=== PATIENT | female | born 1935 | race Caucasian/White ===

== ENCOUNTER → 2016-12-15 | Outpatient (CLI) | payer MEDICARE, BC ==
[2016-12-15 08:45] LABS: ALT 32 U/L (9-52); AST 24 U/L (14-36); Cholesterol 121 mg/dL (<200); HDL Cholesterol 60 mg/dL (40-60); Triglycerides 74 mg/dL (<150)
== END | disposition home or self-care (01) ==
LOC: LABWHC1 07:34
PROVIDERS: ATTEND Internal Medicine Interventional Cardiology
DX: E78.2 Mixed hyperlipidemia (principal)
CPT/HCPCS: 36415; 80061; 84450; 84460

== ENCOUNTER → 2017-07-19 | Outpatient (CLI) | payer MEDICARE, BC ==
[2017-07-19 10:43] LABS: Calcium 10.1 mg/dL (8.4-10.2); Potassium 5.1 mmol/L (3.5-5.1); Total Bilirubin 0.4 mg/dL (0.2-1.3); Total Protein 7.1 g/dL (6.3-8.2)
== END | disposition home or self-care (01) ==
LOC: LABWHC1 09:25
PROVIDERS: ATTEND Internal Medicine Interventional Cardiology
DX: E78.2 Mixed hyperlipidemia (principal)
CPT/HCPCS: 36415; 80053; 80061

== ENCOUNTER 2017-12-06 11:54 | Emergency (ER) | payer MEDICARE, BC ==
[2017-12-06] MEDS ORDERED: ONDANSETRON 4 MG/2 ML VIAL IVP STA (13:51)
[2017-12-06] MEDS ORDERED: SODIUM CHLORIDE 0.9% 500 ML IV STA (13:51)
[2017-12-06 14:23] VITALS: RESP 18
[2017-12-06 14:28] LABS: Basophils % (A) 0 %; Eosinophils # (A) 0.2 k/uL (0-0.7); Eosinophils % (A) 4 %; HCT 41.5 % (34.0-46.0); HGB 13.7 gm/dL (11.4-16.0); Lymphocytes % (A) 31 %; MCH 32.1 pg (25.0-35.0); MCHC 32.9 g/dL (31.0-37.0); MCV 97.6 fL (80.0-100.0); Mean Platelet Volume 8.7; Monocytes # (A) 0.4 k/uL (0-1.0); Monocytes % (A) 6 %; Neutrophils # (A) 3.7 k/uL (1.3-7.7); Neutrophils % (A) 58 %; Platelet Count 186 k/uL (150-450); RBC 4.25 m/uL (3.80-5.40); RDW 13.1 % (11.5-15.5); WBC 6.4 k/uL (3.8-10.6)
[2017-12-06 14:33] LABS: INR 1.2 (<1.2); Partial Thromboplastin Time 24.5 sec (22.0-30.0); Prothrombin Time 11.3 sec (9.0-12.0)
[2017-12-06 14:37] LABS: ALT 32 U/L (9-52); AST 25 U/L (14-36); Albumin 4.1 g/dL (3.5-5.0); Alkaline Phosphatase 69 U/L (38-126); Anion Gap 10 mmol/L; Blood Urea Nitrogen 25 mg/dL (7-17); Calcium 10.5 mg/dL (8.4-10.2); Carbon Dioxide 23 mmol/L (22-30); Chloride 109 mmol/L (98-107); Glucose 92 mg/dL (74-99); Magnesium 1.9 mg/dL (1.6-2.3); Phosphorus 3.2 mg/dL (2.5-4.5); Potassium 4.5 mmol/L (3.5-5.1); Sodium 142 mmol/L (137-145); Total Bilirubin 0.3 mg/dL (0.2-1.3); Total Protein 6.9 g/dL (6.3-8.2)
[2017-12-06 14:46] LABS: Creatine Kinase 52 U/L (30-135)
--- NOTE | 2017-12-06 14:47 | ED ---
Weakness HPI - General Chief complaint: Weakness Stated complaint: Weakness Time Seen by Provider: 12/06/17 13:37 Source: patient Mode of arrival: wheelchair Limitations: no limitations - History of Present Illness Initial comments: This 82-year-old white female presents stating that she felt sick since this morning. She apparently felt very lightheaded and presyncopal earlier. She also felt a generalized weakness. She states that she has chronic left arm and left leg numbness but then her left leg numbness was worse today with associated right leg numbness. She denies any fevers or chills. She has had some nausea but no vomiting. She denies any abdominal pain, chest pain, or shortness of breath. She denies any headache or neck pain. She apparently had some dysuria last week but none recently. No other urinary symptoms. There are no other complaints or modifying factors. No previous similar incidents. - Related Data Home Medications Medication Instructions Recorded Confirmed Isosorbide Mononitrate ER [Imdur] 60 mg PO DAILY 04/18/15 12/06/17 Lisinopril [Zestril] 5 mg PO QAM 04/18/15 12/06/17 Timolol [Betimol 0.5% Ophth Soln] 1 drop BOTH EYES DAILY 04/18/15 12/06/17 Nitroglycerin Sl Tabs [Nitrostat] 0.4 mg SUBLINGUAL Q5M PRN 06/08/15 12/06/17 Lisinopril [Zestril] 2.5 mg PO HS 09/03/15 12/06/17 Metoprolol Tartrate 25 mg PO BID 09/03/15 12/06/17 Multivitamins, Thera [Theragran] 1 tab PO DAILY 09/03/15 12/06/17 Calcium Carbonate/Vitamin D3 1 tab PO DAILY 05/13/16 12/06/17 [Calcium 600-Vit D3 200 Tablet] Atorvastatin Calcium [Lipitor] 80 mg PO HS 12/06/17 12/06/17 Ferrous Sulfate [Feosol] 325 mg PO DAILY 12/06/17 12/06/17 Previous Rx's Medication Instructions Recorded Pantoprazole Sodium [Protonix] 40 mg PO DAILY #30 tablet. 06/10/15 Clopidogrel [Plavix] 75 mg PO DAILY #1 tablet 06/20/15 Allergies Allergy/AdvReac Type Severity Reaction Status Date / Time acetaminophen Allergy Severe hives, BP Verified 12/06/17 14:46 dropped and pt passed out codeine Allergy Mild Nausea & Verified 12/06/17 14:46 Vomiting Review of Systems ROS Statement: Those systems with pertinent positive or pertinent negative responses have been documented in the HPI. ROS Other: All systems not noted in ROS Statement are negative. Past Medical History Past Medical History: Coronary Artery Disease (CAD), COPD, CVA/TIA, Eye Disorder , GERD/Reflux, GI Bleed, Hyperlipidemia, Hypertension, Myocardial Infarction ([place] ) Additional Past Medical History / Comment(s): hx bleeding ulcer, glaucoma, MACULAR DEGENERATION Last Myocardial Infarction Date:: 2011 History of Any Multi-Drug Resistant Organisms: None Reported Past Surgical History: Cholecystectomy, Coronary Bypass/CABG, Heart Catheterization With Stent Additional Past Surgical History / Comment(s): total 4 stents, CABG May 2012, vein stripping, Past Anesthesia/Blood Transfusion Reactions: No Reported Reaction Additional Past Anesthesia/Blood Transfusion Reaction / Comment(s): no history of blood transfusions Date of Last Stent Placement:: 01/2013 Past Psychological History: No Psychological Hx Reported Smoking Status: Former smoker Past Alcohol Use History: None Reported Past Drug Use History: None Reported - Past Family History Mother Family Medical History: Myocardial Infarction ([place]) Father Family Medical History: Cancer Additional Family Medical History / Comment(s): lung Brother(s) Family Medical History: Cancer, Coronary Artery Disease (CAD), Myocardial Infarction ([place]) Additional Family Medical History / Comment(s): multiple borthers with heart disease and [place]'s. General Exam - General Exam Comments Initial Comments: GENERAL: The patient is well nourished and well hydrated. VITAL SIGNS: Heart rate, blood pressure, respiratory rate reviewed as recorded in nurse's notes. EYES: Pupils are round and reactive. Extraocular movements are intact. No conjunctival / lid redness or swelling. ENT: No external evidence of injury, swelling, or ecchymosis. Airway is patent. Throat is clear. NECK: Nontender. No swelling or evidence of injury. No subcutaneous emphysema. Trachea is midline. No thyroid mass. HEART: Regular rate and rhythm. Good peripheral pulses. LUNGS/CHEST: Breath sounds clear and equal bilaterally. No rales, rhonchi, or wheezes. No ecchymosis, subcutaneous emphysema, or tenderness. ABDOMEN: Abdomen soft without tenderness. No palpable masses or organomegaly. No peritoneal signs. No abdominal wall swelling or ecchymosis. EXTREMITIES: No extremity tenderness. Normal muscle tone and function. No thoracolumbar tenderness. NEUROLOGIC: Sensation is grossly intact. Cranial nerve exam reveals face is symmetrical, tongue is midline, speech is clear. SKIN: No abrasions or ecchymosis is noted. No induration or masses noted. PSYCHIATRIC: Alert and oriented. Appropriate behavior and judgment. Limitations: no limitations Course Vital Signs 12/06/17 12/06/17 12/06/17 12:27 14:22 15:52 Temperature 98.2 F Pulse Rate 60 58 L 62 Respiratory 20 18 18 Rate Blood Pressure 130/60 159/76 159/77 O2 Sat by Pulse 95 94 L 94 L Oximetry Medical Decision Making - Medical Decision Making The patient was seen and examined. All diagnostics were reviewed. An IV is started and she did receive some ample fluid hydration. The EKG shows a normal sinus rhythm with a right bundle-branch block. There is some T-wave inversions in the anteroseptal leads which appears to be chronic as compared to EKG in 2015. There is no acute ST elevation. There is no new EKG changes. The PA intervals 170, QRS duration is 1:30, and the QTC intervals 462. The urinalysis does show a significant urinary tract infection. The laboratory otherwise is unremarkable except for mild hypercalcemia. The computed tomography scan of the brain did not show any acute process with some chronic findings noted. Overall, it is felt as though her symptoms are likely related to the urinary tract infection and that she would benefit from admission. Case will be discussed with internal medicine shortly. - Lab Data Result diagrams: 12/06/17 14:10 12/06/17 14:10 Lab Results 12/06/17 12/06/17 12/06/17 Range/Units 14:10 14:10 14:10 WBC 6.4 (3.8-10.6) k/uL RBC 4.25 (3.80-5.40) m/uL Hgb 13.7 (11.4-16.0) gm/dL Hct 41.5 (34.0-46.0) % MCV 97.6 (80.0-100.0) fL MCH 32.1 (25.0-35.0) pg MCHC 32.9 (31.0-37.0) g/dL RDW 13.1 (11.5-15.5) % Plt Count 186 (150-450) k/uL Neutrophils % 58 % Lymphocytes % 31 % Monocytes % 6 % Eosinophils % 4 % Basophils % 0 % Neutrophils # 3.7 (1.3-7.7) k/uL Lymphocytes # 2.0 (1.0-4.8) k/uL Monocytes # 0.4 (0-1.0) k/uL Eosinophils # 0.2 (0-0.7) k/uL Basophils # 0.0 (0-0.2) k/uL PT (9.0-12.0) sec INR (<1.2) APTT (22.0-30.0) sec Sodium 142 (137-145) mmol/L Potassium 4.5 (3.5-5.1) mmol/L Chloride 109 H (98-107) mmol/L Carbon Dioxide 23 (22-30) mmol/L Anion Gap 10 mmol/L BUN 25 H (7-17) mg/dL Creatinine 0.96 (0.52-1.04) mg/dL Est GFR (MDRD) Af Amer >60 (>60 ml/min/1.73 sqM) Est GFR (MDRD) Non-Af 55 (>60 ml/min/1.73 sqM) Glucose 92 (74-99) mg/dL Calcium 10.5 H (8.4-10.2) mg/dL Phosphorus 3.2 (2.5-4.5) mg/dL Magnesium 1.9 (1.6-2.3) mg/dL Total Bilirubin 0.3 (0.2-1.3) mg/dL AST 25 (14-36) U/L ALT 32 (9-52) U/L Alkaline Phosphatase 69 (38-126) U/L Total Creatine Kinase 52 (30-135) U/L CK-MB (CK-2) 1.1 (0.0-2.4) ng/mL CK-MB (CK-2) Rel Index 2.1 Troponin I <0.012 (0.000-0.034) ng/mL Total Protein 6.9 (6.3-8.2) g/dL Albumin 4.1 (3.5-5.0) g/dL TSH 2.290 (0.465-4.680) mIU/L Urine Color Urine Appearance (Clear) Urine pH (5.0-8.0) Ur Specific [place] (1.001-1.035) Urine Protein (Negative) Urine Glucose (UA) (Negative) Urine Ketones (Negative) Urine Blood (Negative) Urine Nitrite (Negative) Urine Bilirubin (Negative) Urine Urobilinogen (<2.0) mg/dL Ur Leukocyte Esterase (Negative) Urine WBC (0-5) /hpf Ur Squamous Epith Cells (0-4) /hpf Urine Bacteria (None) /hpf Hyaline Casts (0-2) /lpf Urine Mucus (None) /hpf Influenza Type A RNA (Not Detectd) Influenza Type B (PCR) (Not Detectd) 12/06/17 12/06/17 12/06/17 Range/Units 14:10 14:10 15:24 WBC (3.8-10.6) k/uL RBC (3.80-5.40) m/uL Hgb (11.4-16.0) gm/dL Hct (34.0-46.0) % MCV (80.0-100.0) fL MCH (25.0-35.0) pg MCHC (31.0-37.0) g/dL RDW (11.5-15.5) % Plt Count (150-450) k/uL Neutrophils % % Lymphocytes % % Monocytes % % Eosinophils % % Basophils % % Neutrophils # (1.3-7.7) k/uL Lymphocytes # (1.0-4.8) k/uL Monocytes # (0-1.0) k/uL Eosinophils # (0-0.7) k/uL Basophils # (0-0.2) k/uL PT 11.3 (9.0-12.0) sec INR 1.2 H (<1.2) APTT 24.5 (22.0-30.0) sec Sodium (137-145) mmol/L Potassium (3.5-5.1) mmol/L Chloride (98-107) mmol/L Carbon Dioxide (22-30) mmol/L Anion Gap mmol/L BUN (7-17) mg/dL Creatinine (0.52-1.04) mg/dL Est GFR (MDRD) Af Amer (>60 ml/min/1.73 sqM) Est GFR (MDRD) Non-Af (>60 ml/min/1.73 sqM) Glucose (74-99) mg/dL Calcium (8.4-10.2) mg/dL Phosphorus (2.5-4.5) mg/dL Magnesium (1.6-2.3) mg/dL Total Bilirubin (0.2-1.3) mg/dL AST (14-36) U/L ALT (9-52) U/L Alkaline Phosphatase (38-126) U/L Total Creatine Kinase (30-135) U/L CK-MB (CK-2) (0.0-2.4) ng/mL CK-MB (CK-2) Rel Index Troponin I (0.000-0.034) ng/mL Total Protein (6.3-8.2) g/dL Albumin (3.5-5.0) g/dL TSH (0.465-4.680) mIU/L Urine Color Yellow Urine Appearance Cloudy H (Clear) Urine pH 5.0 (5.0-8.0) Ur Specific [place] 1.009 (1.001-1.035) Urine Protein Negative (Negative) Urine Glucose (UA) Negative (Negative) Urine Ketones Negative (Negative) Urine Blood Negative (Negative) Urine Nitrite Positive H (Negative) Urine Bilirubin Negative (Negative) Urine Urobilinogen <2.0 (<2.0) mg/dL Ur Leukocyte Esterase Large H (Negative) Urine WBC 43 H (0-5) /hpf Ur Squamous Epith Cells 3 (0-4) /hpf Urine Bacteria Many H (None) /hpf Hyaline Casts 24 H (0-2) /lpf Urine Mucus Occasional H (None) /hpf Influenza Type A RNA Not Detected (Not Detectd) Influenza Type B (PCR) Not Detected (Not Detectd) Disposition Clinical Impression: Paresthesias, Weakness, Lightheadedness, UTI (urinary tract infection), Hypercalcemia, Hypertension Disposition: ADMITTED IP TO THIS [facility] Condition: Fair Referrals: Yasmani Godfrey MD [Primary Care Provider] - 1-2 days Time of Disposition: 16:07 Decision Date: 12/06/17 Decision Time: 16:07
--- NOTE | 2017-12-06 14:56 | CT ---
EXAMINATION TYPE: CT brain wo con DATE OF EXAM: 12/06/2017 COMPARISON: NONE HISTORY: Weakness and dizziness CT DLP: 1121 mGycm Automated exposure control for dose reduction was used. FINDINGS: There is mild generalized degenerative change. Diffuse areas of abnormal low attenuation within the w sree matter are nonspecific but most typical remote ischemia. An area of acute to subacute ischemia w ould be difficult to exclude and should be correlated with MRI as clinically warranted. Intracranial atherosclerotic changes are noted. No acute intracranial hemorrhage, mass effect or midl ine shift. Calvarium intact. Changes of chronic sinusitis noted with an air-fluid on the right which can be associated with a degr ee of acute sinusitis. IMPRESSION: DEGENERATIVE AND NONSPECIFIC WHITE MATTER CHANGES. MOST LIKELY IN THE BASIS OF REMOTE ISCHEMIA. IF TH ERE IS CONCERN FOR ACUTE ISCHEMIA CORRELATE WITH MRI. CORRELATE FOR ACUTE RIGHT-SIDED MAXILLARY SINUSITIS.
[2017-12-06 14:59] LABS: Creatine Kinase MB 1.1 ng/mL (0.0-2.4); Troponin I <0.012 ng/mL (0.000-0.034)
[2017-12-06 15:44] LABS: Appearance,Urine Cloudy (Clear); Bacteria,Urine Many /hpf; Bilirubin,Urine Negative (Negative); Blood,Urine Negative (Negative); Color,Urine Yellow; Glucose,Urine (UA) Negative (Negative); Hyaline Casts,Urine 24 /lpf (0-2); Ketones,Urine Negative (Negative); Leukocyte Esterase,Urine Large (Negative); Mucus,Urine Occasional /hpf; Nitrite,Urine Positive (Negative); Protein,Urine Negative (Negative); Specific Gravity,Urine 1.009 (1.001-1.035); Squamous Epithelial Cell,Urine 3 /hpf (0-4); Urobilinogen,Urine <2.0 mg/dL (<2.0); WBC,Urine 43 /hpf (0-5)
[2017-12-06] MEDS ORDERED: cefTRIAXone IN SWFI 1,000 MG/10 ML SYRINGE IVP STA (15:57)
--- NOTE | 2017-12-06 16:17 | ED ---
Medical Decision Making - Medical Decision Making The case was eventually discussed with Dr. Anderson and he would like the patient to be discharged home with a prescription for antibiotics. It appears that her vitals are stable, the white blood cell count is normal, and her symptoms have significantly improved at this point. This is discussed with the patient and she is agreeable. He states that he has office hours in the morning and will like her to follow-up with him at that time. The patient and daughter are agreeable to this plan. Return parameters are discussed in detail. She is instructed to drink plenty of water and return if worse. - Lab Data Result diagrams: 12/06/17 14:10 12/06/17 14:10 Lab Results 12/06/17 12/06/17 12/06/17 Range/Units 14:10 14:10 14:10 WBC 6.4 (3.8-10.6) k/uL RBC 4.25 (3.80-5.40) m/uL Hgb 13.7 (11.4-16.0) gm/dL Hct 41.5 (34.0-46.0) % MCV 97.6 (80.0-100.0) fL MCH 32.1 (25.0-35.0) pg MCHC 32.9 (31.0-37.0) g/dL RDW 13.1 (11.5-15.5) % Plt Count 186 (150-450) k/uL Neutrophils % 58 % Lymphocytes % 31 % Monocytes % 6 % Eosinophils % 4 % Basophils % 0 % Neutrophils # 3.7 (1.3-7.7) k/uL Lymphocytes # 2.0 (1.0-4.8) k/uL Monocytes # 0.4 (0-1.0) k/uL Eosinophils # 0.2 (0-0.7) k/uL Basophils # 0.0 (0-0.2) k/uL PT (9.0-12.0) sec INR (<1.2) APTT (22.0-30.0) sec Sodium 142 (137-145) mmol/L Potassium 4.5 (3.5-5.1) mmol/L Chloride 109 H (98-107) mmol/L Carbon Dioxide 23 (22-30) mmol/L Anion Gap 10 mmol/L BUN 25 H (7-17) mg/dL Creatinine 0.96 (0.52-1.04) mg/dL Est GFR (MDRD) Af Amer >60 (>60 ml/min/1.73 sqM) Est GFR (MDRD) Non-Af 55 (>60 ml/min/1.73 sqM) Glucose 92 (74-99) mg/dL Calcium 10.5 H (8.4-10.2) mg/dL Phosphorus 3.2 (2.5-4.5) mg/dL Magnesium 1.9 (1.6-2.3) mg/dL Total Bilirubin 0.3 (0.2-1.3) mg/dL AST 25 (14-36) U/L ALT 32 (9-52) U/L Alkaline Phosphatase 69 (38-126) U/L Total Creatine Kinase 52 (30-135) U/L CK-MB (CK-2) 1.1 (0.0-2.4) ng/mL CK-MB (CK-2) Rel Index 2.1 Troponin I <0.012 (0.000-0.034) ng/mL Total Protein 6.9 (6.3-8.2) g/dL Albumin 4.1 (3.5-5.0) g/dL TSH 2.290 (0.465-4.680) mIU/L Urine Color Urine Appearance (Clear) Urine pH (5.0-8.0) Ur Specific [place] (1.001-1.035) Urine Protein (Negative) Urine Glucose (UA) (Negative) Urine Ketones (Negative) Urine Blood (Negative) Urine Nitrite (Negative) Urine Bilirubin (Negative) Urine Urobilinogen (<2.0) mg/dL Ur Leukocyte Esterase (Negative) Urine WBC (0-5) /hpf Ur Squamous Epith Cells (0-4) /hpf Urine Bacteria (None) /hpf Hyaline Casts (0-2) /lpf Urine Mucus (None) /hpf Influenza Type A RNA (Not Detectd) Influenza Type B (PCR) (Not Detectd) 12/06/17 12/06/17 12/06/17 Range/Units 14:10 14:10 15:24 WBC (3.8-10.6) k/uL RBC (3.80-5.40) m/uL Hgb (11.4-16.0) gm/dL Hct (34.0-46.0) % MCV (80.0-100.0) fL MCH (25.0-35.0) pg MCHC (31.0-37.0) g/dL RDW (11.5-15.5) % Plt Count (150-450) k/uL Neutrophils % % Lymphocytes % % Monocytes % % Eosinophils % % Basophils % % Neutrophils # (1.3-7.7) k/uL Lymphocytes # (1.0-4.8) k/uL Monocytes # (0-1.0) k/uL Eosinophils # (0-0.7) k/uL Basophils # (0-0.2) k/uL PT 11.3 (9.0-12.0) sec INR 1.2 H (<1.2) APTT 24.5 (22.0-30.0) sec Sodium (137-145) mmol/L Potassium (3.5-5.1) mmol/L Chloride (98-107) mmol/L Carbon Dioxide (22-30) mmol/L Anion Gap mmol/L BUN (7-17) mg/dL Creatinine (0.52-1.04) mg/dL Est GFR (MDRD) Af Amer (>60 ml/min/1.73 sqM) Est GFR (MDRD) Non-Af (>60 ml/min/1.73 sqM) Glucose (74-99) mg/dL Calcium (8.4-10.2) mg/dL Phosphorus (2.5-4.5) mg/dL Magnesium (1.6-2.3) mg/dL Total Bilirubin (0.2-1.3) mg/dL AST (14-36) U/L ALT (9-52) U/L Alkaline Phosphatase (38-126) U/L Total Creatine Kinase (30-135) U/L CK-MB (CK-2) (0.0-2.4) ng/mL CK-MB (CK-2) Rel Index Troponin I (0.000-0.034) ng/mL Total Protein (6.3-8.2) g/dL Albumin (3.5-5.0) g/dL TSH (0.465-4.680) mIU/L Urine Color Yellow Urine Appearance Cloudy H (Clear) Urine pH 5.0 (5.0-8.0) Ur Specific [place] 1.009 (1.001-1.035) Urine Protein Negative (Negative) Urine Glucose (UA) Negative (Negative) Urine Ketones Negative (Negative) Urine Blood Negative (Negative) Urine Nitrite Positive H (Negative) Urine Bilirubin Negative (Negative) Urine Urobilinogen <2.0 (<2.0) mg/dL Ur Leukocyte Esterase Large H (Negative) Urine WBC 43 H (0-5) /hpf Ur Squamous Epith Cells 3 (0-4) /hpf Urine Bacteria Many H (None) /hpf Hyaline Casts 24 H (0-2) /lpf Urine Mucus Occasional H (None) /hpf Influenza Type A RNA Not Detected (Not Detectd) Influenza Type B (PCR) Not Detected (Not Detectd) Disposition Clinical Impression: Paresthesias, Weakness, Lightheadedness, UTI (urinary tract infection), Hypercalcemia, Hypertension Disposition: HOME SELF-CARE Condition: Good Instructions: Urinary Tract Infection in Women (ED), Hypertension (ED) Prescriptions: Ciprofloxacin HCl [Cipro] 500 mg PO Q12HR #20 tablet Referrals: Yasmani Godfrey MD [Primary Care Provider] - 12/07/17 Time of Disposition: 16:17
[2017-12-06 16:40] VITALS: PULSE 66
[2017-12-06 16:41] LABS: Glucose,Whole Blood 85 mg/dL (75-99)
[2017-12-06 16:56] VITALS: BP 162/81; TEMP 97.8
== END 2017-12-06 16:56 | disposition home or self-care (01) ==
LOC: EC 11:54
DX: E83.52 Hypercalcemia (principal); I10 Essential (primary) hypertension; N39.0 Urinary tract infection, site not specified; R42 Dizziness and giddiness; R53.1 Weakness; R20.2 Paresthesia of skin; I25.10 Atherosclerotic heart disease of native coronary artery without angina pectoris; E78.5 Hyperlipidemia, unspecified; I25.2 Old myocardial infarction; Z86.73 Personal history of transient ischemic attack (TIA), and cerebral infarction without residual deficits; Z86.69 Personal history of other diseases of the nervous system and sense organs; Z95.1 Presence of aortocoronary bypass graft; Z95.5 Presence of coronary angioplasty implant and graft; Z87.891 Personal history of nicotine dependence; Z79.899 Other long term (current) drug therapy; Z88.6 Allergy status to analgesic agent; Z88.5 Allergy status to narcotic agent
CPT/HCPCS: 36415; 93005; 80053; 82550; 82553; 83735; 84100; 84443; 84484; 85025; 85610; 85730; 81001; 87040; 87502; 70450; 99285; 96374; 96375; 96361 ×3; J2405; J0696

== ENCOUNTER → 2018-01-11 | Outpatient (CLI) | payer MEDICARE, BC ==
[2018-01-11 09:07] LABS: ALT 25 U/L (9-52); AST 25 U/L (14-36); Albumin 4.3 g/dL (3.5-5.0); Alkaline Phosphatase 63 U/L (38-126); Anion Gap 10 mmol/L; Blood Urea Nitrogen 18 mg/dL (7-17); Calcium 10.1 mg/dL (8.4-10.2); Carbon Dioxide 29 mmol/L (22-30); Chloride 106 mmol/L (98-107); Cholesterol 126 mg/dL (<200); Glucose 91 mg/dL (74-99); HDL Cholesterol 67 mg/dL (40-60); LDL Cholesterol,Calculated 43 mg/dL (0-99); Potassium 4.3 mmol/L (3.5-5.1); Sodium 145 mmol/L (137-145); Total Bilirubin 0.6 mg/dL (0.2-1.3); Total Protein 7.2 g/dL (6.3-8.2); Triglycerides 80 mg/dL (<150)
== END | disposition home or self-care (01) ==
LOC: LABWHC1 08:11
PROVIDERS: ATTEND Internal Medicine Interventional Cardiology
DX: E78.2 Mixed hyperlipidemia (principal)
CPT/HCPCS: 36415; 80053; 80061

== ENCOUNTER → 2018-04-21 | Outpatient (CLI) | payer MEDICARE, BC ==
--- NOTE | 2018-04-21 14:15 | XR ---
EXAMINATION TYPE: XR lumbosacral spine min 4V DATE OF EXAM: 04/21/2018 COMPARISON: NONE HISTORY: Low back pain TECHNIQUE: Five-view lumbar spine FINDINGS: Scoliosis is present. There 5 lumbar-type vertebral bodies. The pedicles as visualized appe ar intact. Degenerative disc changes with loss of disc height are present throughout the lumbar spine . Spondylosis is present. Note is made of fusiform prominence of the calcified abdominal aorta. This has a maximum AP diameter approximately 2.2 cm as visualized. IMPRESSION: 1. Multilevel degenerative disc changes within the scoliotic lumbar spine. 2. Minimal fusiform prominence distal calcified abdominal aorta estimated 2.2 cm.
== END | disposition home or self-care (01) ==
LOC: RADXRMAIN 13:04
PROVIDERS: ATTEND Internal Medicine
DX: M47.816 Spondylosis without myelopathy or radiculopathy, lumbar region (principal); M41.9 Scoliosis, unspecified
CPT/HCPCS: 72110

== ENCOUNTER → 2018-06-13 | Outpatient (CLI) | payer MEDICARE, BC ==
--- NOTE | 2018-06-13 15:48 | XR ---
EXAMINATION TYPE: XR chest 2V DATE OF EXAM: 06/13/2018 COMPARISON: 04/01/2013 INDICATION: Low back pain, pre-MRI clearance TECHNIQUE: Frontal and lateral views of the chest are obtained. FINDINGS: The heart size is normal. The pulmonary vasculature is normal. The lungs are clear. No suspicious metallic foreign body to contraindicate MRI is evident. Sternotom y wires and surgical clips from CABG are evident. There is a cardiac stent faintly visualized which s hould be checked for MRI compatibility. IMPRESSION: 1. Cardiac stent should be checked for MRI compatibility. 2. No suspicious metallic foreign bodies otherwise evident to contraindicate MRI
== END | disposition home or self-care (01) ==
LOC: RADXRMAIN 11:25
PROVIDERS: ATTEND Physician Assistant
DX: Z01.818 Encounter for other preprocedural examination (principal); Z95.5 Presence of coronary angioplasty implant and graft; Z95.1 Presence of aortocoronary bypass graft
CPT/HCPCS: 71046

== ENCOUNTER → 2018-07-14 | Outpatient (CLI) | payer MEDICARE, BC ==
[2018-07-14 10:12] LABS: ALT 18 U/L (9-52); AST 31 U/L (14-36); Cholesterol 107 mg/dL (<200); HDL Cholesterol 55 mg/dL (40-60); LDL Cholesterol,Calculated 39 mg/dL (0-99); Triglycerides 66 mg/dL (<150)
== END | disposition home or self-care (01) ==
LOC: LABWHC1 09:21
PROVIDERS: ATTEND Internal Medicine Interventional Cardiology
DX: E78.2 Mixed hyperlipidemia (principal)
CPT/HCPCS: 36415; 80061; 84450; 84460

== ENCOUNTER → 2019-08-22 | Outpatient (CLI) | payer MEDICARE, BC ==
[2019-08-22 16:39] LABS: Chol/HDL Ratio 2.07; LDL Cholesterol,Calculated 45.6 mg/dL (0.0-131.0); VLDL Calculation 14.4 mg/dL (5.00-40.00)
== END | disposition home or self-care (01) ==
LOC: LABWHC1 08:10
PROVIDERS: ATTEND Internal Medicine Interventional Cardiology
DX: E78.2 Mixed hyperlipidemia (principal)
CPT/HCPCS: 36415; 80061; 84450; 84460

== ENCOUNTER → 2021-03-10 | Outpatient (CLI) | payer MEDICARE ==
[2021-03-10 19:07] LABS: Chol/HDL Ratio 2.64
== END | disposition home or self-care (01) ==
LOC: LABWHC1 07:30
PROVIDERS: ATTEND Nurse Practitioner Adult Health
DX: E78.2 Mixed hyperlipidemia (principal)
CPT/HCPCS: 36415; 80061

== ENCOUNTER 2021-09-22 07:11 | Observation (INO) | payer MEDICARE ==
--- NOTE | 2021-09-22 07:54 | ED ---
General Adult HPI - General Chief complaint: Chest Pain Stated complaint: Chest pain Time Seen by Provider: 09/22/21 07:13 Source: patient, EMS Mode of arrival: EMS Limitations: no limitations - History of Present Illness Initial comments: Dictation was produced using [employer] dictation software. please excuse any grammatical, word or spelling errors. Chief Complaint: Patient is an 86-year-old female presents to the emergency department for chest discomfort History of Present Illness: Patient is an 78-year-old female she has past m edical history coronary artery disease, bypass surgery. She states that this morning she woke up with episode of nausea. She states the nausea was short- lived lasting for several minutes and resolving on its own spontaneously. Several minutes later patient started to feel pressure in her chest. She denies that it feels like pain. Nonradiating. She told her neighbor who provided her with nitroglycerin. She called EMS was brought to the emergency department. Patient denies any symptoms at this time. She states she is asymptomatic at this time. Denies any shortness of breath. She is also concerned that she has a and peptic ulcer because last time she had a peptic ulcer she had nausea. Denies any black stools. No abdominal pain. The ROS documented in this emergency department record has been reviewed and confirmed by me. Those systems with pertinent positive or negative responses have been documented in the HPI. All other systems are other negative and/or noncontributory. PHYSICAL EXAM: General Impression: Alert and oriented x3, not in acute distress HEENT: Normocephalic atraumatic, extra-ocular movements intact, pupils equal and reactive to light bilaterally, mucous membranes moist. Cardiovascular: Heart regular rate and rhythm Chest: Able to complete full sentences, no retractions, no tachypnea Abdomen: abdomen soft, non-tender, non-distended, no organomegaly Musculoskeletal: Pulses present and equal in all extremities, no peripheral edema Motor: no focal deficits noted Neurological: CN II-XII grossly intact, no focal motor or sensory deficits noted Skin: Intact with no visualized rashes Psych: Normal affect and mood ED course: 86-year-old female past medical history of coronary artery disease, status post bypass surgery presents to the emergency department for chest pressure. Vital signs upon arrival are within acceptable limits. EKG shows no signs of ischemia or infarction. Labs are unremarkable. Cardiac enzymes normal. Patient had a really received aspirin from prehospital providers. Given patient's risk factors and history of coronary artery disease patient be admitted observation for cardiac monitoring and serial troponins. Cardiology was consulted. EKG interpretation: Ventricular rate 63, sinus rhythm, NC interval 1:30, QRS 70, QTc 450. No NC prolongation, no QTC prolongation, no ST or T-wave changes noted. Overall, this EKG is unremarkable - Related Data Home Medications Medication Instructions Recorded Confirmed Nitroglycerin Sl Tabs [Nitrostat] 0.4 mg SL Q5M PRN 06/08/15 09/22/21 Metoprolol Tartrate 25 mg PO BID 09/03/15 09/22/21 Multivitamins, Thera [Theragran] 1 tab PO DAILY 09/03/15 09/22/21 Atorvastatin Calcium [Lipitor] 40 mg PO HS 12/06/17 09/22/21 Aspirin 243 mg PO ONCE PRN 09/22/21 09/22/21 Aspirin EC [Ecotrin Low Dose] 81 mg PO DAILY 09/22/21 09/22/21 Baclofen [Lioresal] 10 mg PO DAILY 09/22/21 09/22/21 Calcium Carbonate [Calcium] 600 mg PO BID 09/22/21 09/22/21 Celecoxib [CeleBREX] 200 mg PO DAILY 09/22/21 09/22/21 Isosorbide Mononitrate ER [Imdur] 60 mg PO DAILY 09/22/21 09/22/21 Lisinopril [Zestril] 10 mg PO BID 09/22/21 09/22/21 Oxybutynin Xl [Ditropan XL] 5 mg PO DAILY 09/22/21 09/22/21 amLODIPine [Norvasc] 2.5 mg PO DAILY 09/22/21 09/22/21 Previous Rx's Medication Instructions Recorded Pantoprazole Sodium [Protonix] 40 mg PO DAILY #30 tablet. 06/10/15 Allergies Allergy/AdvReac Type Severity Reaction Status Date / Time acetaminophen Allergy Severe hives, BP Verified 09/22/21 08:24 dropped and pt passed out codeine Allergy Mild Nausea & Verified 09/22/21 08:24 Vomiting Review of Systems ROS Statement: Those systems with pertinent positive or pertinent negative responses have been documented in the HPI. ROS Other: All systems not noted in ROS Statement are negative. Past Medical History Past Medical History: Coronary Artery Disease (CAD), COPD, CVA/TIA, Eye Disorder, GERD/Reflux, GI Bleed, Hyperlipidemia, Hypertension, Myocardial Infarction (OR) Additional Past Medical History / Comment(s): hx bleeding ulcer, glaucoma, MACULAR DEGENERATION Last Myocardial Infarction Date:: 2011 History of Any Multi-Drug Resistant Organisms: None Reported Past Surgical History: Cholecystectomy, Coronary Bypass/CABG, Heart Catheterization With Stent Additional Past Surgical History / Comment(s): total 4 stents, CABG May 2012, vein stripping, Past Anesthesia/Blood Transfusion Reactions: No Reported Reaction Additional Past Anesthesia/Blood Transfusion Reaction / Comment(s): no history of blood transfusions Date of Last Stent Placement:: 01/2013 Past Psychological History: No Psychological Hx Reported Smoking Status: Never smoker Past Alcohol Use History: Occasional Past Drug Use History: None Reported - Past Family History Mother Family Medical History: Myocardial Infarction (OR) Father Family Medical History: Cancer Additional Family Medical History / Comment(s): lung Brother(s) Family Medical History: Cancer, Coronary Artery Disease (CAD), Myocardial I nfarction (OR) Additional Family Medical History / Comment(s): multiple borthers with heart disease and OR's. General Exam Limitations: no limitations Course Vital Signs 09/22/21 09/22/21 09/22/21 07:29 07:50 08:10 Temperature 98.3 F Pulse Rate 57 L 57 L 80 Respiratory 18 18 17 Rate Blood Pressure 160/65 165/74 177/83 O2 Sat by Pulse 95 94 L 98 Oximetry 09/22/21 09:05 Temperature Pulse Rate 52 L Respiratory 18 Rate Blood Pressure 165/76 O2 Sat by Pulse 98 Oximetry Medical Decision Making - Lab Data Result diagrams: 09/22/21 07:40 09/22/21 07:40 Lab Results 09/22/21 09/22/21 09/22/21 Range/Units 07:40 07:40 07:40 WBC 10.5 (3.8-10.6) k/uL RBC 3.94 (3.80-5.40) m/uL Hgb 12.9 (11.4-16.0) gm/dL Hct 39.0 (34.0-46.0) % MCV 99.1 (80.0-100.0) fL MCH 32.7 (25.0-35.0) pg MCHC 33.0 (31.0-37.0) g/dL RDW 12.1 (11.5-15.5) % Plt Count 145 L (150-450) k/uL MPV 9.4 Neutrophils % 73 % Lymphocytes % 16 % Monocytes % 6 % Eosinophils % 4 % Basophils % 0 % Neutrophils # 7.7 (1.3-7.7) k/uL Lymphocytes # 1.7 (1.0-4.8) k/uL Monocytes # 0.6 (0-1.0) k/uL Eosinophils # 0.4 (0-0.7) k/uL Basophils # 0.0 (0-0.2) k/uL PT 10.8 (9.0-12.0) sec INR 1.0 (<1.2) APTT 22.7 (22.0-30.0) sec Sodium 140 (137-145) mmol/L Potassium 4.7 (3.5-5.1) mmol/L Chloride 110 H (98-107) mmol/L Carbon Dioxide 23 (22-30) mmol/L Anion Gap 7 mmol/L BUN 27 H (7-17) mg/dL Creatinine 1.18 H (0.52-1.04) mg/dL Est GFR (CKD-EPI)AfAm 48 (>60 ml/min/1.73 sqM) Est GFR (CKD-EPI)NonAf 41 (>60 ml/min/1.73 sqM) Glucose 99 (74-99) mg/dL Calcium 9.6 (8.4-10.2) mg/dL Magnesium 1.7 (1.6-2.3) mg/dL Total Bilirubin 0.6 (0.2-1.3) mg/dL AST 27 (14-36) U/L ALT 12 (4-34) U/L Alkaline Phosphatase 62 (38-126) U/L Troponin I (0.000-0.034) ng/mL Total Protein 6.7 (6.3-8.2) g/dL Albumin 3.8 (3.5-5.0) g/dL Lipase 131 (23-300) U/L 09/22/21 Range/Units 07:40 WBC (3.8-10.6) k/uL RBC (3.80-5.40) m/uL Hgb (11.4-16.0) gm/dL Hct (34.0-46.0) % MCV (80.0-100.0) fL MCH (25.0-35.0) pg MCHC (31.0-37.0) g/dL RDW (11.5-15.5) % Plt Count (150-450) k/uL MPV Neutrophils % % Lymphocytes % % Monocytes % % Eosinophils % % Basophils % % Neutrophils # (1.3-7.7) k/uL Lymphocytes # (1.0-4.8) k/uL Monocytes # (0-1.0) k/uL Eosinophils # (0-0.7) k/uL Basophils # (0-0.2) k/uL PT (9.0-12.0) sec INR (<1.2) APTT (22.0-30.0) sec Sodium (137-145) mmol/L Potassium (3.5-5.1) mmol/L Chloride (98-107) mmol/L Carbon Dioxide (22-30) mmol/L Anion Gap mmol/L BUN (7-17) mg/dL Creatinine (0.52-1.04) mg/dL Est GFR (CKD-EPI)AfAm (>60 ml/min/1.73 sqM) Est GFR (CKD-EPI)NonAf (>60 ml/min/1.73 sqM) Glucose (74-99) mg/dL Calcium (8.4-10.2) mg/dL Magnesium (1.6-2.3) mg/dL Total Bilirubin (0.2-1.3) mg/dL AST (14-36) U/L ALT (4-34) U/L Alkaline Phosphatase (38-126) U/L Troponin I <0.012 (0.000-0.034) ng/mL Total Protein (6.3-8.2) g/dL Albumin (3.5-5.0) g/dL Lipase (23-300) U/L Disposition Clinical Impression: Chest pain Disposition: [facility] Condition: Fair Referrals: Kev Waddell MD [Primary Care Provider] - 1-2 days
[2021-09-22 08:03] LABS: Basophils % (A) 0 %; Eosinophils # (A) 0.4 k/uL (0-0.7); Eosinophils % (A) 4 %; HGB 12.9 gm/dL (11.4-16.0); Lymphocytes # (A) 1.7 k/uL (1.0-4.8); Lymphocytes % (A) 16 %; MCH 32.7 pg (25.0-35.0); MCV 99.1 fL (80.0-100.0); Mean Platelet Volume 9.4; Monocytes # (A) 0.6 k/uL (0-1.0); Monocytes % (A) 6 %; Neutrophils # (A) 7.7 k/uL (1.3-7.7); Neutrophils % (A) 73 %; Platelet Count 145 k/uL (150-450); RBC 3.94 m/uL (3.80-5.40); RDW 12.1 % (11.5-15.5); WBC 10.5 k/uL (3.8-10.6)
--- NOTE | 2021-09-22 08:14 | XR ---
EXAMINATION TYPE: XR chest 2V DATE OF EXAM: 09/22/2021 COMPARISON: 06/13/2018 HISTORY: 86-year-old female with chest pain TECHNIQUE: PA and lateral views FINDINGS: Heart borderline in size when referring to the lateral view. Atherosclerotic arch calcifications. Pul monary vasculature within normal limits. Hyperinflation. Median sternotomy wires are present in the p ost-CABG clips in the mediastinum. Rounded retrocardiac lucency is redemonstrated. A band of atelecta sis at the right base. Otherwise, no consolidation or pleural effusion. IMPRESSION: 1. COPD with strandy right basilar atelectasis. 2. Suspect a moderate-sized hiatal hernia.
[2021-09-22 08:16] LABS: Partial Thromboplastin Time 22.7 sec (22.0-30.0); Prothrombin Time 10.8 sec (9.0-12.0)
[2021-09-22 08:23] LABS: Albumin 3.8 g/dL (3.5-5.0); Calcium 9.6 mg/dL (8.4-10.2); Magnesium 1.7 mg/dL (1.6-2.3); Potassium 4.7 mmol/L (3.5-5.1); Total Bilirubin 0.6 mg/dL (0.2-1.3); Total Protein 6.7 g/dL (6.3-8.2)
[2021-09-22] MEDS ORDERED: NITROGLYCERIN SL TABS 0.4 MG TAB SUBLINGUAL PRN (09:08)
[2021-09-22] MEDS: METOPROLOL TARTRATE 25 MG TAB PO SCH ×2 (11:09→23:36)
[2021-09-22] MEDS: amLODIPine 2.5 MG TAB PO SCH (11:10)
[2021-09-22] MEDS: lisinopriL 10 MG TAB PO SCH ×2 (11:10→23:36)
[2021-09-22] MEDS: ISOSORBIDE MONONITRATE ER 60 MG TAB.ER.24H PO SCH (11:10)
--- NOTE | 2021-09-22 12:22 | ECHOF ---
Referral Reason:LV function MEASUREMENTS -------- HEIGHT: 157.5 cm WEIGHT: 52.6 kg BP: RVIDd: 2.8 cm (< 3.3) IVSd: 1.0 cm (0.6 - 1.1) LVIDd: 4.4 cm (3.9 - 5.3) LVPWd: 1.1 cm (0.6 - 1.1) IVSs: 1.4 cm LVIDs: 3.1 cm LVPWs: 1.4 cm LA Diam: 4.2 cm (2.7 - 3.8) LAESV Index (A-L): 31.31 ml/m Ao Diam: 2.8 cm (2.0 - 3.7) AV Cusp: 1.6 cm (1.5 - 2.6) MV EXCURSION: 18.395 mm (> 18.000) MV EF SLOPE: 98 mm/s (70 - 150) EPSS: 0.6 cm MV E Kodi: 0.71 m/s MV DecT: 208 ms MV A Kodi: 0.59 m/s MV E/A Ratio: 1.21 RAP: 5.00 mmHg RVSP: 44.20 mmHg FINDINGS -------- Sinus rhythm. This was a technically adequate study. The left ventricular size is normal. Left ventricular wall thickness is normal. Overall left vent ricular systolic function is low-normal with, an EF between 50 - 55 %. The right ventricle is normal in size. LA is midly dilated 29-33ml/m2. The right atrial size is normal. There is mild aortic valve sclerosis. Mild mitral annular calcification present. Mild mitral regurgitation is present. Pclc-lc-rgyxxflc tricuspid regurgitation present. There is mild to moderate pulmonary hypertension. The right ventricular systolic pressure, as measured by Doppler, is 44.20mmHg. Trace/mild (physiologic) pulmonic regurgitation. The aortic root size is normal. There is no pericardial effusion. CONCLUSIONS -------- 1. Overall left ventricular systolic function is low-normal with, an EF between 50 - 55 %. 2. LA is midly dilated 29-33ml/m2. 3. There is mild aortic valve sclerosis. 4. Mild mitral regurgitation is present. 5. Naeg-ig-uilwscpp tricuspid regurgitation present. 6. There is mild to moderate pulmonary hypertension. 7. Trace/mild (physiologic) pulmonic regurgitation. 8. There is no pericardial effusion. [employer]TER: Ledy Banuelos RDCS
--- NOTE | 2021-09-22 13:00 | P.CRDCN ---
History of Present Illness History of present illness: HISTORY OF PRESENTING ILLNESS This is a pleasant 86-year-old female past medical history significant for coronary artery disease status post 5 vessel CABG 2011, PCI of the mid RCA in 2011, PCI of the proximal D1 in 2012, hypertension, dyslipidemia, former tobacco use, Gastric ulcer, gastritis. She follows in the office with Dr. Cueto. We have been asked to see in consultation for chest pain. Patient is seen and examined in the emergency department. Patient presents emergency department with complaints of nausea and chest pressure. She states she woke up with morning with worsening nausea, she states she has a known gastric ulcer and usually gets nauseous occasionally and it resolves. This morning her nausea persisted, she sat down and proceeded to experience a heavy chest pressure. She checked her blood pressure and it was elevated at 188/86. Chest pressure was located in the center of her chest. Non-radiating, non-exertional. She was slightly lightheaded. No specific aggravating factors. She took a sublingual nitroglycerin. EMS was called was given 325mg of aspirin and another nitroglyerin she states her pain resolved before arriving to the emergency department. She denies abdominal pain, vomiting, shortness of breath, palpitations, dizziness, syncope, symptoms of orthopnea or PND. She denies smoking. She states these symptoms are different then when she had her stents placed prior. DIAGNOSTICS EKG reveals sinus rhythm, RBBB, HR 58, T wave inversions in leads V2 and V3. Prior EKG with similar findings Echocardiogram the office in 03/2020 revealed EF of 50%, mild mitral regurgitation, mild to moderate tricuspid regurgitation Lexiscan in 2016 in the office, negative for reversible ischemia Chest xray hyperinflation, COPD with strandy right basilar atelectasis, suspect a moderate sized hiatal hernia. Laboratory reviewed, Plt 14, rest of CBC unremarkable, sodium 140, potassium 4.7, BUN 27, serum creatinine 1.18, and is 1.7, troponin negative 2, LFTs with in normal limits and Lipase within normal limits, covid-19 PCR negative. Current cardiac medications include amlodipine 2.5 mg daily, metoprolol tartrate 25 mg twice a day, lisinopril 10 mg twice a day, Imdur 60 mg daily, atorvastatin 40 mg daily, aspirin 81 mg daily REVIEW OF SYSTEMS At the time of my exam: CONSTITUTIONAL: Denies fever or chills. CARDIOVASCULAR: + chest pain,Denies shortness of breath, orthopnea, PND or palpitations. RESPIRATORY: Denies cough. GASTROINTESTINAL: +nausea Denies abdominal pain, diarrhea, constipation, vomiting. MUSCULOSKELETAL: Denies myalgias. NEUROLOGIC: Denies numbness, tingling, headacbe or weakness. ENDOCRINE: Denies fatigue, weight change, polydipsia or polyurina. GENITOURINARY: Denies burning, hematuria or urgency with micturation. HEMATOLOGIC: Denies history of anemia or bleeding. PHYSICAL EXAMINATION Blood pressure 124/60, heart 52, afebrile maintaining oxygen saturations 97% on 2 L nasal cannula CONSTITUTIONAL: No apparent distress. HEENT: Head is normocephalic. Pupils are equal, round. Sclerae anicteric. Mucous membranes of the mouth are moist. No JVD. No carotid bruit. CHEST EXAMINATION: Lungs are clear to auscultation. No chest wall tenderness is noted on palpation or with deep breathing. HEART EXAMINATION: Regular rate and rhythm. S1, S2 heard. Systolic ejection murmur, No gallops or rub. ABDOMEN: Soft, nontender. Positive bowel sounds. EXTREMITIES: 2+ peripheral pulses, no lower extremity edema and no calf tenderness. NEUROLOGIC EXAMINATION: Patient is awake, alert and oriented x3. ASSESSMENT Chest pain, atypical Nausea Acute Kidney Injury Coronary artery disease status post 5 vessel CABG 2011, PCI of the mid RCA in 2011, PCI of the proximal D1 in 2013 Hypertension Dyslipidemia Former tobacco use History of gastric ulcer PLAN Trend troponin Repeat EKG Continue cardiac telemetry Echocardiogram completed revealed EF 50-55%, mild mitral regurgitation, mild to moderate tricuspid regurgitation, mild to moderate pulmonary hypertension. Continue home amlodipine, aspirin, statin, Imdur, Lisinopril, metoprolol tartrate. Continue to follow patient and monitor chest pain Further recommendations based on clinical course Nurse Practitioner note has been reviewed, I agree with a documented findings and plan of care. Patient was seen and examined. Past Medical History Past Medical History: Coronary Artery Disease (CAD), COPD, CVA/TIA, Eye Disorder, GERD/Reflux, GI Bleed, Hyperlipidemia, Hypertension, Myocardial Infarction (SD) Additional Past Medical History / Comment(s): hx bleeding ulcer, glaucoma, MACULAR DEGENERATION Last Myocardial Infarction Date:: 2011 History of Any Multi-Drug Resistant Organisms: None Reported Past Surgical History: Cholecystectomy, Coronary Bypass/CABG, Heart Catheterization With Stent Additional Past Surgical History / Comment(s): total 4 stents, CABG May 2012, vein stripping, Past Anesthesia/Blood Transfusion Reactions: No Reported Reaction Additional Past Anesthesia/Blood Transfusion Reaction / Comment(s): no history of blood transfusions Date of Last Stent Placement:: 01/2013 Past Psychological History: No Psychological Hx Reported Smoking Status: Never smoker Past Alcohol Use History: Occasional Past Drug Use History: None Reported - Past Family History Mother Family Medical History: Myocardial Infarction (SD) Father Family Medical History: Cancer Additional Family Medical History / Comment(s): lung Brother(s) Family Medical History: Cancer, Coronary Artery Disease (CAD), Myocardial Infarction (SD) Additional Family Medical History / Comment(s): multiple borthers with heart disease and SD's. Medications and Allergies Home Medications Medication Instructions Recorded Confirmed Type Nitroglycerin Sl Tabs [Nitrostat] 0.4 mg SL Q5M PRN 06/08/15 09/22/21 History Pantoprazole Sodium [Protonix] 40 mg PO DAILY #30 tablet. 06/10/15 09/22/21 Rx Metoprolol Tartrate 25 mg PO BID 09/03/15 09/22/21 History Multivitamins, Thera [Theragran] 1 tab PO DAILY 09/03/15 09/22/21 History Atorvastatin Calcium [Lipitor] 40 mg PO HS 12/06/17 09/22/21 History Aspirin 243 mg PO ONCE PRN 09/22/21 09/22/21 History Aspirin EC [Ecotrin Low Dose] 81 mg PO DAILY 09/22/21 09/22/21 History Baclofen [Lioresal] 10 mg PO DAILY 09/22/21 09/22/21 History Calcium Carbonate [Calcium] 600 mg PO BID 09/22/21 09/22/21 History Celecoxib [CeleBREX] 200 mg PO DAILY 09/22/21 09/22/21 History Isosorbide Mononitrate ER [Imdur] 60 mg PO DAILY 09/22/21 09/22/21 History Lisinopril [Zestril] 10 mg PO BID 09/22/21 09/22/21 History Oxybutynin Xl [Ditropan XL] 5 mg PO DAILY 09/22/21 09/22/21 History amLODIPine [Norvasc] 2.5 mg PO DAILY 09/22/21 09/22/21 History Allergies Allergy/AdvReac Type Severity Reaction Status Date / Time acetaminophen Allergy Severe hives, BP Verified 09/22/21 08:24 dropped and pt passed out codeine Allergy Mild Nausea & Verified 09/22/21 08:24 Vomiting Physical Exam Vitals: Vital Signs Temp Pulse Resp BP Pulse Ox 09/22/21 09:05 52 L 18 165/76 98 09/22/21 08:10 80 17 177/83 98 09/22/21 07:50 57 L 18 165/74 94 L 09/22/21 07:29 98.3 F 57 L 18 160/65 95 Intake and Output 09/21/21 09/22/21 09/22/21 22:59 06:59 14:59 Other: Weight 52.617 kg Results 09/22/21 07:40 09/22/21 07:40 Cardiac Enzymes 09/22/21 09/22/21 Range/Units 07:40 07:40 AST 27 (14-36) U/L Troponin I <0.012 (0.000-0.034) ng/mL Coagulation 09/22/21 Range/Units 07:40 PT 10.8 (9.0-12.0) sec APTT 22.7 (22.0-30.0) sec CBC 09/22/21 Range/Units 07:40 WBC 10.5 (3.8-10.6) k/uL RBC 3.94 (3.80-5.40) m/uL Hgb 12.9 (11.4-16.0) gm/dL Hct 39.0 (34.0-46.0) % Plt Count 145 L (150-450) k/uL Comprehensive Metabolic Panel 09/22/21 Range/Units 07:40 Sodium 140 (137-145) mmol/L Potassium 4.7 (3.5-5.1) mmol/L Chloride 110 H (98-107) mmol/L Carbon Dioxide 23 (22-30) mmol/L BUN 27 H (7-17) mg/dL Creatinine 1.18 H (0.52-1.04) mg/dL Glucose 99 (74-99) mg/dL Calcium 9.6 (8.4-10.2) mg/dL AST 27 (14-36) U/L ALT 12 (4-34) U/L Alkaline Phosphatase 62 (38-126) U/L Total Protein 6.7 (6.3-8.2) g/dL Albumin 3.8 (3.5-5.0) g/dL Current Medications Generic Name Dose Route Start Last Admin Trade Name Freq PRN Reason Stop Dose Admin Amlodipine Besylate 2.5 mg 09/22/21 10:15 Amlodipine 2.5 Mg Tab PO DAILY [facility] Aspirin 81 mg 09/23/21 09:00 Aspirin 81 Mg PO DAILY [facility] Atorvastatin Calcium 40 mg 09/22/21 21:00 Atorvastatin 40 Mg Tab PO HS [facility] Baclofen 10 mg 09/23/21 09:00 Baclofen 10 Mg Tab PO DAILY [facility] Calcium Carbonate/Glycine 500 mg 09/22/21 21:00 Calcium Carbonate 500 Mg Chewable PO BID [facility] Isosorbide Mononitrate 60 mg 09/22/21 10:15 Isosorbide Mononitrate Er 60 Mg Tab.Er.24h PO DAILY [facility] Lisinopril 10 mg 09/22/21 10:15 Lisinopril 10 Mg Tab PO BID [facility] Metoprolol Tartrate 25 mg 09/22/21 10:15 Metoprolol Tartrate 25 Mg Tab PO BID [facility] Multivitamins 1 each 09/23/21 09:00 Multivitamins, Thera 1 Each Tab PO DAILY [facility] Nitroglycerin 0.4 mg 09/22/21 09:08 Nitroglycerin Sl Tabs 0.4 Mg Tab SUBLINGUAL Q5M PRN Chest Pain Oxybutynin Chloride 5 mg 09/23/21 09:00 Oxybutynin Xl 5 Mg Tab.Er.24 PO DAILY [facility] Pantoprazole Sodium 40 mg 09/22/21 17:30 Pantoprazole 40 Mg Tablet PO AC-BID [facility] Intake and Output 09/21/21 09/22/21 09/22/21 22:59 06:59 14:59 Other: Weight 52.617 kg Patient Weight 09/23/21 06:59 Weight 52.617 kg 09/22/21 07:40 09/22/21 07:40
[2021-09-22 13:46] VITALS: RESP 18
--- NOTE | 2021-09-22 14:55 | P.HPIM ---
History of Present Illness H&P Date: 09/22/21 HISTORY OF PRESENT ILLNESS This is an 86-year-old female patient of Dr. Waddell and Dr. Cueto with past medical history of coronary artery disease status post 5 vessel CABG in 2010 followed by 4 stents, retention, hyperlipidemia, peptic ulcer disease and gastritis, remote history of tobacco use and dependence, daily alcohol use. Patient states that she has had nausea off and on for the past month. Patient states that she was sleeping woke her up with nausea and she went to the bathroom. She is going to lay back down in bed but she became nauseated again and going and sitting in a chair and then developed chest pain that started as a pressure in the center of her chest. She denies any radiation. She does have chronic neck pain. No shortness of breath. Patient came into [facility] emergency center for evaluation. Patient was found to be afebrile, heart rate in the 50s, blood pressure 160/65, pulse ox 95% on room air. EKG was sinus rhythm with right bundle branch block and T-wave inversions in V2 and V3. Chest x-ray reveals hyperinflation, COPD with strandy right basilar atelectasis suspected moderate size hiatal hernia. WBC 10.5, hemoglobin 12.9, platelet count 145. INR 1.0. BUN 27 creatinine 1.18. Liver function tests were normal. Magnesium 1.7. Troponin negative on 3 draws. Coronavirus not detected. Lipase 131. Patient is seen in the emergency center waiting for a bed on the observation unit. REVIEW OF SYSTEMS Constitutional: No fever, no chills, no night sweats. No weight change. No weakness, fatigue or lethargy. No daytime sleepiness. EENT: No headache. No blurred vision or double vision, no loss of vision. No loss of Hearing, no ringing in the ears, no dizziness. No nasal drainage or congestion. No epistaxis. No sore throat. Lungs: No shortness of breath, cough, no sputum production. No wheezing. Cardiovascular: Reported chest pain, no lower extremity edema. No palpitations. No paroxysmal nocturnal dyspnea. No orthopnea. No lightheadedness or dizziness. No syncopal episodes. Abdominal: No abdominal pain. Reported nausea, vomiting. No diarrhea. No constipation. No bloody or tarry stools. No loss of appetite. Genitourinary: No dysuria, increased frequency, urgency. No urinary retention. Musculoskeletal: No myalgias. No muscle weakness, no gait dysfunction, no frequent falls. No back pain. No neck pain. Integumentary: No wounds, no lesions. No rash or pruritus. No unusual bruising. No change in hair or nails. Neurologic: No aphasia. No facial droop. No change in mentation. No head injury. No headache. No paralysis. No paresthesia. Psychiatric: No depression. No anxiety. No mood swings. Endocrine: No abnormal blood sugars. No weight change. No excessive sweating or thirst. No cold intolerance. SOCIAL HISTORY Patient was a smoker one pack per day for 60 years and quit in 2010 when she had CABG. She denies any marijuana or illicit drug use. She does drink alcohol on a daily basis and her coffee. FAMILY HISTORY Father at age 75 from lung cancer secondary to welding, mother at age 82 from coronary artery disease. Patient has one sister with diabetes. Patient has 4 brothers and 3 of past 1 from myocardial infarction, one from liver cancer, one from consultations from diabetes and coronary artery disease. One is living with diabetes. Patient is a total of 7 children one is passed from cirrhosis of the liver. One son has diabetes 1 has borderline diabetes, one has coronary artery disease and atrial fibrillation.. PHYSICAL EXAMINATION Gen: This is an 86-year-old female. She is resting on the ear structure and appears to be comfortable and in no acute distress. Daughter is at bedside. HEENT: Head is atraumatic, normocephalic. Pupils equal, round. Sclerae is anicteric. NECK: Supple. No JVD. No lymphadenopathy. No thyromegaly. LUNGS: Clear to auscultation. No wheezes or rhonchi. No intercostal retractions. HEART: Regular rate and rhythm. No murmur. ABDOMEN: Soft. Bowel sounds are present. No masses. No tenderness. EXTREMITIES: No pedal edema. No calf tenderness. NEUROLOGICAL: Patient is awake, alert and oriented x3. Cranial nerves 2 through 12 are grossly intact. ASSESSMENT AND PLAN 1. Chest pain, atypical. Cardiology consult, echocardiogram as above, continue aspirin, Lipitor, Imdur, metoprolol. 2. History of coronary artery disease. Continue as in #1. 3. Hypertension. Continue lisinopril 10 mg twice daily, Lopressor 25 mg twice daily. 4. Hyperlipidemia. Continue Lipitor 40 mg at bedtime. 5. History of gastroesophageal reflux disease, peptic ulcer disease and gastritis. Continue Protonix 40 mg increased to twice daily. 6. Overactive bladder. Continue oxybutynin 5 mg daily. Patient placed as observation status. DISCHARGE PLAN Home tomorrow. Impression and plan of care have been directed as dictated by the signing physi cian. Mary Dsouza nurse practitioner acting as scribe for signing physician. Past Medical History Past Medical History: Coronary Artery Disease (CAD), COPD, CVA/TIA, Eye Disorder, GERD/Reflux, GI Bleed, Hyperlipidemia, Hypertension, Myocardial Infarction (LA) Additional Past Medical History / Comment(s): hx bleeding ulcer, glaucoma, MACULAR DEGENERATION Last Myocardial Infarction Date:: 2011 History of Any Multi-Drug Resistant Organisms: None Reported Past Surgical History: Cholecystectomy, Coronary Bypass/CABG, Heart Catheterization With Stent Additional Past Surgical History / Comment(s): total 4 stents, CABG May 2012, vein stripping, Past Anesthesia/Blood Transfusion Reactions: No Reported Reaction Additional Past Anesthesia/Blood Transfusion Reaction / Comment(s): no history of blood transfusions Date of Last Stent Placement:: 01/2013 Past Psychological History: No Psychological Hx Reported Smoking Status: Never smoker Past Alcohol Use History: Occasional Past Drug Use History: None Reported - Past Family History Mother Family Medical History: Myocardial Infarction (LA) Father Family Medical History: Cancer Additional Family Medical History / Comment(s): lung Brother(s) Family Medical History: Cancer, Coronary Artery Disease (CAD), Myocardial Infarction (LA) Additional Family Medical History / Comment(s): multiple borthers with heart disease and LA's. Medications and Allergies Home Medications Medication Instructions Recorded Confirmed Type Nitroglycerin Sl Tabs [Nitrostat] 0.4 mg SL Q5M PRN 06/08/15 09/22/21 History Pantoprazole Sodium [Protonix] 40 mg PO DAILY #30 tablet. 06/10/15 09/22/21 Rx Metoprolol Tartrate 25 mg PO BID 09/03/15 09/22/21 History Multivitamins, Thera [Theragran] 1 tab PO DAILY 09/03/15 09/22/21 History Atorvastatin Calcium [Lipitor] 40 mg PO HS 12/06/17 09/22/21 History Aspirin 243 mg PO ONCE PRN 09/22/21 09/22/21 History Aspirin EC [Ecotrin Low Dose] 81 mg PO DAILY 09/22/21 09/22/21 History Baclofen [Lioresal] 10 mg PO DAILY 09/22/21 09/22/21 History Calcium Carbonate [Calcium] 600 mg PO BID 09/22/21 09/22/21 History Celecoxib [CeleBREX] 200 mg PO DAILY 09/22/21 09/22/21 History Isosorbide Mononitrate ER [Imdur] 60 mg PO DAILY 09/22/21 09/22/21 History Lisinopril [Zestril] 10 mg PO BID 09/22/21 09/22/21 History Oxybutynin Xl [Ditropan XL] 5 mg PO DAILY 09/22/21 09/22/21 History amLODIPine [Norvasc] 2.5 mg PO DAILY 09/22/21 09/22/21 History Allergies Allergy/AdvReac Type Severity Reaction Status Date / Time acetaminophen Allergy Severe hives, BP Verified 09/22/21 08:24 dropped and pt passed out codeine Allergy Mild Nausea & Verified 09/22/21 08:24 Vomiting Physical Exam Vitals: Vital Signs Temp Pulse Resp BP Pulse Ox 09/22/21 09:05 52 L 18 165/76 98 09/22/21 08:10 80 17 177/83 98 09/22/21 07:50 57 L 18 165/74 94 L 09/22/21 07:29 98.3 F 57 L 18 160/65 95 Intake and Output 09/21/21 09/22/21 09/22/21 22:59 06:59 14:59 Other: Weight 52.617 kg Results CBC & Chem 7: 09/22/21 07:40 09/22/21 07:40 Labs: Abnormal Lab Results - Last 24 Hours (Table) 09/22/21 09/22/21 Range/Units 07:40 07:40 Plt Count 145 L (150-450) k/uL Chloride 110 H (98-107) mmol/L BUN 27 H (7-17) mg/dL Creatinine 1.18 H (0.52-1.04) mg/dL
[2021-09-22] MEDS ORDERED: ATORVASTATIN 40 MG TAB PO SCH (21:00)
[2021-09-22] MEDS: PANTOPRAZOLE 40 MG TABLET PO SCH (21:51)
[2021-09-22] MEDS: CALCIUM CARBONATE 500 MG CHEWABLE PO SCH (23:37)
[2021-09-23 08:14] VITALS: BP 158/54; PULSE 49; TEMP 97.7
[2021-09-23] MEDS: CALCIUM CARBONATE 500 MG CHEWABLE PO SCH (08:27)
[2021-09-23] MEDS: lisinopriL 10 MG TAB PO SCH (08:27)
[2021-09-23] MEDS: PANTOPRAZOLE 40 MG TABLET PO SCH (08:27)
[2021-09-23] MEDS: METOPROLOL TARTRATE 25 MG TAB PO SCH (08:27)
[2021-09-23] MEDS ORDERED: PANTOPRAZOLE 40 MG TABLET PO SCH (09:00)
[2021-09-23] MEDS ORDERED: ASPIRIN 81 MG PO SCH (09:00)
[2021-09-23] MEDS ORDERED: OXYBUTYNIN XL 5 MG TAB.ER.24 PO SCH (09:00)
[2021-09-23] MEDS ORDERED: MULTIVITAMINS, THERA 1 EACH TAB PO SCH (09:00)
[2021-09-23] MEDS ORDERED: BACLOFEN 10 MG TAB PO SCH (09:00)
[2021-09-23] MEDS ORDERED: ASPIRIN 325 MG TAB PO SCH (09:00)
[2021-09-23] MEDS ORDERED: lisinopriL 10 MG TAB PO STA (09:25)
--- NOTE | 2021-09-23 09:32 | P.DS ---
Providers Date of admission: 09/22/21 09:10 Expected date of discharge: 09/23/21 Attending physician: Kev Waddell Consults: 09/22/21 09:08 Consult Physician Urgent Consulting Provider: Huey Renner Consult Reason/Comments: chest pain Do you want consulting provider notified?: Yes Primary care physician: [facility] Course: HISTORY OF PRESENT ILLNESS This is an 86-year-old female patient of Dr. Waddell and Dr. Cueto with past medical history of coronary artery disease status post 5 vessel CABG in 2010 followed by 4 stents, retention, hyperlipidemia, peptic ulcer disease and gastritis, remote history of tobacco use and dependence, daily alcohol use. Patient states that she has had nausea off and on for the past month. Patient states that she was sleeping woke her up with nausea and she went to the bathroom. She is going to lay back down in bed but she became nauseated again and going and sitting in a chair and then developed chest pain that started as a pressure in the center of her chest. She denies any radiation. She does have chronic neck pain. No shortness of breath. Patient came into [facility] emergency center for evaluation. Patient was found to be afebrile, heart rate in the 50s, blood pressure 160/65, pulse ox 95% on room air. EKG was sinus rhythm with right bundle branch block and T-wave inversions in V2 and V3. Chest x-ray reveals hyperinflation, COPD with strandy right basilar atelectasis suspected moderate size hiatal hernia. WBC 10.5, hemoglobin 12.9, platelet count 145. INR 1.0. BUN 27 creatinine 1.18. Liver function tests were normal. Magnesium 1.7. Troponin negative on 3 draws. Coronavirus not detected. Lipase 131. Patient is seen in the emergency center waiting for a bed on the observation unit. 09/23: Patient states the chest pain is all gone. Blood pressure is running high and lisinopril increased to 20 mg twice daily. She does have some pain thought to be gastritis and Protonix to continue it twice daily. Patient was seen by cardiology and acute coronary syndrome has been ruled out with recommendations continue home medications and patient can follow-up with Dr. Cueto. Patient will be discharged home today in stable condition. DISCHARGE DIAGNOSES 1. Chest pain, atypical. Pain possibly related to gastritis. 2. History of coronary artery disease. Continue as in #1. 3. Hypertension. 4. Hyperlipidemia. 5. History of gastroesophageal reflux disease, peptic ulcer disease and gastritis. 6. Overactive bladder. DISCHARGE PLAN Home Greater than 35 minutes was utilized and coordinating patient's discharge. Impression and plan of care have been directed as dictated by the signing physi cian. Mary Dsouza nurse practitioner acting as scribe for signing physician. Patient Condition at Discharge: Good Plan - Discharge Summary Discharge Rx Participant: Yes New Discharge Prescriptions: New Pantoprazole [Protonix] 40 mg PO AC-BID #60 tab lisinopriL [Zestril] 20 mg PO BID #60 tab Continue Nitroglycerin Sl Tabs [Nitrostat] 0.4 mg SL Q5M PRN PRN Reason: Chest Pain Metoprolol Tartrate 25 mg PO BID Multivitamins, Thera [Multivitamin (formulary)] 1 tab PO DAILY Atorvastatin Calcium [Lipitor] 40 mg PO HS Celecoxib [CeleBREX] 200 mg PO DAILY Calcium Carbonate [Calcium] 600 mg PO BID amLODIPine [Norvasc] 2.5 mg PO DAILY Oxybutynin Xl [Ditropan XL] 5 mg PO DAILY Baclofen [Lioresal] 10 mg PO DAILY Isosorbide Mononitrate ER [Imdur] 60 mg PO DAILY Aspirin EC [Ecotrin Low Dose] 81 mg PO DAILY Discontinued Pantoprazole Sodium [Protonix] 40 mg PO DAILY #30 tablet.dr Aspirin 243 mg PO ONCE PRN PRN Reason: Chest Pain Lisinopril [Zestril] 10 mg PO BID Discharge Medication List Nitroglycerin Sl Tabs [Nitrostat] 0.4 mg SL Q5M PRN 06/08/15 [History] Metoprolol Tartrate 25 mg PO BID 09/03/15 [History] Multivitamins, Thera [Multivitamin (formulary)] 1 tab PO DAILY 09/03/15 [History] Atorvastatin Calcium [Lipitor] 40 mg PO HS 12/06/17 [History] Aspirin EC [Ecotrin Low Dose] 81 mg PO DAILY 09/22/21 [History] Baclofen [Lioresal] 10 mg PO DAILY 09/22/21 [History] Calcium Carbonate [Calcium] 600 mg PO BID 09/22/21 [History] Celecoxib [CeleBREX] 200 mg PO DAILY 09/22/21 [History] Isosorbide Mononitrate ER [Imdur] 60 mg PO DAILY 09/22/21 [History] Oxybutynin Xl [Ditropan XL] 5 mg PO DAILY 09/22/21 [History] amLODIPine [Norvasc] 2.5 mg PO DAILY 09/22/21 [History] Pantoprazole [Protonix] 40 mg PO AC-BID #60 tab 09/23/21 [Rx] lisinopriL [Zestril] 20 mg PO BID #60 tab 09/23/21 [Rx] Follow up Appointment(s)/Referral(s): Sharda Cueto MD [STAFF PHYSICIAN] - 10/13/21 3:45 pm Kev Waddell MD [Primary Care Provider] - 1 Week Patient Instructions/Handouts: Chest Pain (DC) Discharge Disposition: HOME SELF-CARE
[2021-09-23] MEDS: amLODIPine 2.5 MG TAB PO SCH (09:58)
[2021-09-23] MEDS: ISOSORBIDE MONONITRATE ER 60 MG TAB.ER.24H PO SCH (09:58)
--- NOTE | 2021-09-23 11:16 | P.PN ---
Subjective This is a pleasant 86-year-old female past medical history significant for coronary artery disease status post 5 vessel CABG 2011, PCI of the mid RCA in 2011, PCI of the proximal D1 in 2013, hypertension, dyslipidemia, former tobacco use, Gastric ulcer, gastritis. She follows in the office with Dr. Cueto. We have been asked to see in consultation for chest pain. Patient presents emergency department with complaints of nausea and chest pressure. She states she woke up with morning with worsening nausea, she states she has a known gastric ulcer and usually gets nauseous occasionally and it resolves. This morning her nausea persisted, she sat down and proceeded to experience a heavy chest pressure. She checked her blood pressure and it was elevated at 188/86. Chest pressure was located in the center of her chest. Non-radiating, non-exertional. She was slightly lightheaded. No specific aggravating factors. She took a sublingual nitroglycerin. EMS was called was given 325mg of aspirin and another nitroglyerin she states her pain resolved before arriving to the emergency department. She denies abdominal pain, vomiting, shortness of breath, palpitations, dizziness, syncope, symptoms of orthopnea or PND. She denies smoking. She states these symptoms are different then when she had her stents placed prior. 09/23/21 Patient seen and examined at bedside. No further chest pain. Denies shortness of breath, lightheadedness, dizziness, palpitations. Echocardiogram completed revealed EF 50-55%, mild mitral regurgitation, mild to moderate tricuspid regurgitation, mild to moderate pulmonary hypertension. Troponin negative 3, no significant ischemia noted on EKG. telemetry reviewed patient sinus mechanism with no arrhythmia noted. Vital signs are stable. PHYSICAL EXAMINATION Blood pressure 158/54 heart rate 51, afebrile oxygen saturation greater than 92% on room air CONSTITUTIONAL: No apparent distress. HEENT: Neck Supple. No JVD. CHEST EXAMINATION: Lungs are clear to auscultation. No chest wall tenderness is noted on palpation or with deep breathing. HEART EXAMINATION: Regular rate and rhythm. S1, S2 heard. Systolic ejection murmur, No gallops or rub. ABDOMEN: Soft, nontender. Positive bowel sounds. EXTREMITIES: 2+ peripheral pulses, no lower extremity edema and no calf tenderness. NEUROLOGIC EXAMINATION: Patient is awake, alert and oriented x3. ASSESSMENT Chest pain, atypical Nausea Acute Kidney Injury Coronary artery disease status post 5 vessel CABG 2011, PCI of the mid RCA in 2011, PCI of the proximal D1 in 2013 Hypertension Dyslipidemia Former tobacco use History of gastric ulcer PLAN Acute coronary syndrome has been ruled out. Continue home amlodipine, aspirin, statin, Imdur, Lisinopril, metoprolol tartrate. From a cardiology perspective, patient is stable to be discharged home. Followup outpatient with Dr. Cueto Nurse Practitioner note has been reviewed, I agree with a documented findings and plan of care. Patient was seen and examined. Objective - Vital Signs Vital signs: Vital Signs Temp 97.7 F 09/23/21 07:00 Pulse 49 L 09/23/21 07:00 Resp 18 09/23/21 08:00 BP 158/54 09/23/21 07:00 Pulse Ox 94 L 09/23/21 07:00 Intake & Output 09/22/21 09/23/21 09/23/21 18:59 06:59 18:59 Intake Total 118 Balance 118 Weight 52.617 kg Intake: Oral 118 Other: Voiding Method Toilet Toilet # Voids 3 1 - Labs CBC & Chem 7: 09/22/21 07:40 09/22/21 07:40
[2021-09-23 12:43] LABS: Chol/HDL Ratio 2.2 Ratio; LDL Cholesterol,Calculated 46.8 mg/dL (0.0-131.0); Triglycerides 71.1 mg/dL (0.00-149.00); VLDL Calculation 14.22 mg/dL (5.00-40.00)
[2021-09-23] MEDS ORDERED: lisinopriL 20 MG TAB PO SCH (21:00)
== END 2021-09-23 10:30 | disposition home or self-care (01) ==
LOC: EC 07:11 → 6NMEDSUR 09:10
PROVIDERS: ADMIT Internal Medicine Geriatric Medicine; ATTEND Internal Medicine Geriatric Medicine
DX: R07.89 Other chest pain (principal); N17.9 Acute kidney failure, unspecified; R11.0 Nausea; I25.10 Atherosclerotic heart disease of native coronary artery without angina pectoris; J98.11 Atelectasis; I10 Essential (primary) hypertension; I45.10 Unspecified right bundle-branch block; I08.1 Rheumatic disorders of both mitral and tricuspid valves; I27.20 Pulmonary hypertension, unspecified; J44.9 Chronic obstructive pulmonary disease, unspecified; E78.5 Hyperlipidemia, unspecified; I25.2 Old myocardial infarction; H40.9 Unspecified glaucoma; K21.9 Gastro-esophageal reflux disease without esophagitis; H35.30 Unspecified macular degeneration; G89.29 Other chronic pain; M54.2 Cervicalgia; N32.81 Overactive bladder; Z20.822 Contact with and (suspected) exposure to COVID-19; Z79.82 Long term (current) use of aspirin; Z79.1 Long term (current) use of non-steroidal anti-inflammatories (NSAID); Z79.899 Other long term (current) drug therapy; Z88.5 Allergy status to narcotic agent; Z88.6 Allergy status to analgesic agent; Z86.73 Personal history of transient ischemic attack (TIA), and cerebral infarction without residual deficits; Z87.19 Personal history of other diseases of the digestive system; Z95.1 Presence of aortocoronary bypass graft; Z90.49 Acquired absence of other specified parts of digestive tract; Z95.5 Presence of coronary angioplasty implant and graft; Z87.11 Personal history of peptic ulcer disease; Z87.891 Personal history of nicotine dependence; Z98.890 Other specified postprocedural states; Z82.49 Family history of ischemic heart disease and other diseases of the circulatory system; Z80.1 Family history of malignant neoplasm of trachea, bronchus and lung; Z80.0 Family history of malignant neoplasm of digestive organs; Z83.79 Family history of other diseases of the digestive system; Z83.3 Family history of diabetes mellitus
CPT/HCPCS: 99285; 36415; 93005; 93306; 80061; 80053; 83690; 83735; 84484; 85025; 85610; 85730; 87635; 71046; G0378 ×2

== ENCOUNTER → 2022-10-20 | Outpatient (CLI) | payer MEDICARE ==
[2022-10-20 15:30] LABS: ALT 12 U/L (8-44); AST 23 U/L (13-35); African American GFR (CKD) 42.1 (60.0-200.0); Albumin 4.1 g/dL (3.8-4.9); Albumin/Globulin Ratio 1.46 (1.60-3.17); Alkaline Phosphatase 57 U/L (41-126); BUN/Creat Ratio 20.38 Ratio (12.00-20.00); Blood Urea Nitrogen 26.5 mg/dL (9.0-27.0); Calcium 10.4 mg/dL (8.7-10.3); Carbon Dioxide 26.7 mmol/L (20.0-27.5); Chloride 107 mmol/L (96-109); Chol/HDL Ratio 1.95 Ratio; Globulin 2.8 g/dL (1.6-3.3); Glucose 93 mg/dL (70-110); LDL Cholesterol,Calculated 48.5 mg/dL (0.0-131.0); Non-African American GFR(CKD) 36.3 (60.0-200.0); Potassium 4.6 mmol/L (3.5-5.5); Sodium 142 mmol/L (135-145); Total Protein 6.9 g/dL (6.2-8.2)
== END | disposition home or self-care (01) ==
LOC: LABWHC1 09:43
PROVIDERS: ATTEND Internal Medicine Interventional Cardiology
DX: E78.2 Mixed hyperlipidemia (principal)
CPT/HCPCS: 36415; 80053; 80061

== ENCOUNTER 2023-05-04 11:15 | Inpatient (IN) | payer MEDICARE ==
[2023-05-04] MEDS ORDERED: NITROGLYCERIN OINT 1 INCH/GM PACKET TOPICAL STA (11:36)
[2023-05-04] MEDS ORDERED: ASPIRIN 81 MG PO STA (11:36)
--- NOTE | 2023-05-04 11:39 | ED ---
General Adult HPI - General Chief complaint: Chest Pain Stated complaint: chest pain Time Seen by Provider: 05/04/23 11:32 Source: patient, EMS, RN notes reviewed Mode of arrival: EMS Limitations: no limitations - History of Present Illness Initial comments: Patient is a pleasant 87-year-old female presenting to the emergency department with concerns for chest discomfort. Onset of symptoms was a couple of days ago. Symptoms were worse today with doing housework. Discomfort was somewhat severe earlier however now is near resolved. Discomfort felt like pressure. Patient did have associated nausea. Patient did take a nitroglycerin with significant improvement of symptoms. No vomiting. No associated diaphoresis. No dyspnea. No leg pain or leg swelling. No radiation of discomfort. - Related Data Home Medications Medication Instructions Recorded Confirmed Nitroglycerin Sl Tabs [Nitrostat] 0.4 mg SL Q5M PRN 06/08/15 05/04/23 Metoprolol Tartrate 25 mg PO BID 09/03/15 05/04/23 Aspirin EC [Ecotrin Low Dose] 81 mg PO DAILY 09/22/21 05/04/23 Calcium Carbonate [Calcium] 600 mg PO BID 09/22/21 05/04/23 Celecoxib [CeleBREX] 200 mg PO DAILY 09/22/21 05/04/23 Isosorbide Mononitrate ER [Imdur] 60 mg PO DAILY 09/22/21 05/04/23 Oxybutynin Xl [Ditropan XL] 5 mg PO DAILY 09/22/21 05/04/23 amLODIPine [Norvasc] 2.5 mg PO DAILY 09/22/21 05/04/23 Atorvastatin [Lipitor] 20 mg PO HS 05/04/23 05/04/23 Baclofen 5 mg PO DAILY 05/04/23 05/04/23 Ibandronate Sodium 150 mg PO Q30D 05/04/23 05/04/23 Pantoprazole [Protonix] 40 mg PO DAILY 05/04/23 05/04/23 traMADol HCL 25 mg PO Q6H PRN 05/04/23 05/04/23 Previous Rx's Medication Instructions Recorded lisinopriL [Zestril] 20 mg PO BID #60 tab 09/23/21 Allergies Allergy/AdvReac Type Severity Reaction Status Date / Time acetaminophen Allergy Severe hives, BP Verified 05/04/23 13:15 dropped and pt passed out codeine Allergy Mild Nausea & Verified 05/04/23 13:15 Vomiting Review of Systems ROS Statement: Those systems with pertinent positive or pertinent negative responses have been documented in the HPI. ROS Other: All systems not noted in ROS Statement are negative. Constitutional: Denies: fever Eyes: Denies: eye pain ENT: Denies: ear pain Respiratory: Denies: cough, dyspnea Cardiovascular: Reports: as per HPI, chest pain Endocrine: Denies: fatigue Gastrointestinal: Reports: nausea. Denies: abdominal pain, vomiting Genitourinary: Denies: dysuria Musculoskeletal: Denies: back pain Skin: Denies: rash Neurological: Denies: weakness Past Medical History Past Medical History: Coronary Artery Disease (CAD), COPD, CVA/TIA, Eye Disorder, GERD/Reflux, GI Bleed, Hyperlipidemia, Hypertension, Myocardial Infarction (SC) Additional Past Medical History / Comment(s): hx bleeding ulcer, glaucoma, MACULAR DEGENERATION Last Myocardial Infarction Date:: 2011 History of Any Multi-Drug Resistant Organisms: None Reported Past Surgical History: Cholecystectomy, Coronary Bypass/CABG, Heart Catheterization With Stent Additional Past Surgical History / Comment(s): total 4 stents, CABG May 2012, vein stripping, Past Anesthesia/Blood Transfusion Reactions: No Reported Reaction Additional Past Anesthesia/Blood Transfusion Reaction / Comment(s): no history of blood transfusions Date of Last Stent Placement:: 01/2013 Past Psychological History: No Psychological Hx Reported Smoking Status: Never smoker Past Alcohol Use History: Occasional Past Drug Use History: None Reported - Past Family History Mother Family Medical History: Myocardial Infarction (SC) Father Family Medical History: Cancer Additional Family Medical History / Comment(s): lung Brother(s) Family Medical History: Cancer, Coronary Artery Disease (CAD), Myocardial Infarction (SC) Additional Family Medical History / Comment(s): multiple borthers with heart disease and SC's. General Exam Limitations: no limitations General appearance: alert, in no apparent distress Head exam: Present: normocephalic Eye exam: Present: normal appearance Neck exam: Present: normal inspection Respiratory exam: Present: normal lung sounds bilaterally. Absent: chest wall tenderness Cardiovascular Exam: Present: regular rate, normal rhythm Expanded Peripheral pulses: 2+: Radial (R), Radial (L), Posterior Tibialis (R), Posterior Tibialis (L) GI/Abdominal exam: Present: soft. Absent: tenderness Extremities exam: Present: normal inspection. Absent: pedal edema, calf t enderness Neurological exam: Present: alert Psychiatric exam: Present: normal affect, normal mood Skin exam: Present: normal color Course Vital Signs 05/04/23 11:17 Temperature 97.5 F L Pulse Rate 56 L Respiratory 16 Rate Blood Pressure 157/62 O2 Sat by Pulse 93 L Oximetry EKG Findings - EKG Results: EKG: interpreted by ERMD (Right bundle-branch block. Inferior T wave inversion.), sinus rhythm, normal axis EKG shows: bradycardia Medical Decision Making - Medical Decision Making Was pt. sent in by a medical professional or institution (, PA, ACADEMIC HOSPITALIST, urgent care, hospital, or senior care...) When possible be specific @ -No Did you speak to anyone other than the patient for history (EMS, parent, family, police, friend...)? What history was obtained from this source @ -EMS reported they did provide aspirin Did you review nursing and triage notes (agree or disagree)? Why? @ -I reviewed and agree with nursing and triage notes Were old charts reviewed (outside hosp., previous admission, EMS record, old EKG, old radiological studies, urgent care reports/EKG's, senior care records)? Report findings @ -No old charts were reviewed Differential Diagnosis (chest pain, altered mental status, abdominal pain women, abdominal pain men, vaginal bleeding, weakness, fever, dyspnea, syncope, headache, dizziness, GI bleed, back pain, seizure, CVA, palpatations, mental health)? @ -Differential Chest Pain: Stable Angina, Unstable Angina, STEMI, NSTEMI Aortic Dissection, Pneumothorax, Musculoskeletal, Esophageal Spasm GERD, Cholecystitis, Pancreatitis, Zoster, this is not meant to be an all-inclusive list. EKG interpreted by me (3pts min.). @ -As above X-rays interpreted by me (1pt min.). @ -Chest x-ray does not reveal acute process. CT interpreted by me (1pt min.). @ -None done U/S interpreted by me (1pt. min.). @ -None done What testing was considered but not performed or refused? (CT, X-rays, U/S, labs)? Why? @ -None What meds were considered but not given or refused? Why? @ -None Did you discuss the management of the patient with other professionals (professionals i.e. DrKarol, PA, ACADEMIC HOSPITALIST, lab, RT, psych nurse, social work lecturer, data input clerk, teacher, state patrol officer, mental health case manager)? Give summary @ -Case was discussed with Dr. Zambrano, who will admit covered Dr. Waddell Was smoking cessation discussed for >3mins.? @ -No Was critical care preformed (if so, how long)? @ -31 minutes critical care time Were there social determinants of health that impacted care today? How? (Homelessness, low income, unemployed, alcoholism, drug addiction, tra nsportation, low edu. Level, literacy, decrease access to med. care, [place] [facility], rehab)? @ -No Was there de-escalation of care discussed even if they declined (Discuss DNR or withdrawal of care, Hospice)? DNR status @ -No What co-morbidities impacted this encounter? (DM, HTN, Smoking, COPD, CAD, Cancer, CVA, ARF, Chemo, Hep., AIDS, mental health diagnosis, sleep apnea, morbid obesity)? @ -None Was patient admitted / discharged? Hospital course, mention meds given and route, prescriptions, significant lab abnormalities, going to OR and other pertinent info. @ -Patient reevaluated and remains symptom-free. Patient will be admitted. Heparin drip started. There is concern regarding elevation of troponin level. Undiagnosed new problem with uncertain prognosis? @ -No Drug Therapy requiring intensive monitoring for toxicity (Heparin, Nitro, Insulin, Cardizem)? @ -She'll be started on heparin drip and need persistent monitoring Were any procedures done? @ -No Diagnosis/symptom? @ -Acute coronary syndrome Acute, or Chronic, or Acute on Chronic? @ -Acute Uncomplicated (without systemic symptoms) or Complicated (systemic symptoms)? @ -default Side effects of treatment? @ -No Exacerbation, Progression, or Severe Exacerbation? @ -No Poses a threat to life or bodily function? How? (Chest pain, USA, SC, pneumonia, PE, COPD, DKA, ARF, appy, cholecystitis, CVA, Diverticulitis, Homicidal, Suicidal, threat to staff... and all critical care pts) @ -No - Lab Data Result diagrams: 05/04/23 11:59 05/04/23 11:59 Lab Results 0605/04/23 05/04/23 Range/Units 11:59 11:59 11:59 WBC 6.2 (3.8-10.6) k/uL RBC 3.93 (3.80-5.40) m/uL Hgb 12.9 (11.4-16.0) gm/dL Hct 39.2 (34.0-46.0) % MCV 99.9 (80.0-100.0) fL MCH 32.9 (25.0-35.0) pg MCHC 33.0 (31.0-37.0) g/dL RDW 12.4 (11.5-15.5) % Plt Count 130 L (150-450) k/uL MPV 10.1 Neutrophils % 61 % Lymphocytes % 26 % Monocytes % 6 % Eosinophils % 6 % Basophils % 0 % Neutrophils # 3.8 (1.3-7.7) k/uL Lymphocytes # 1.6 (1.0-4.8) k/uL Monocytes # 0.4 (0-1.0) k/uL Eosinophils # 0.3 (0-0.7) k/uL Basophils # 0.0 (0-0.2) k/uL PT 10.7 (9.0-12.0) sec INR 1.0 (<1.2) APTT 22.0 (22.0-30.0) sec Sodium 140 (137-145) mmol/L Potassium 4.4 (3.5-5.1) mmol/L Chloride 106 (98-107) mmol/L Carbon Dioxide 26 (22-30) mmol/L Anion Gap 8 mmol/L BUN 29 H (7-17) mg/dL Creatinine 1.21 H (0.52-1.04) mg/dL Est GFR (CKD-EPI)AfAm 46 (>60 ml/min/1.73 sqM) Est GFR (CKD-EPI)NonAf 40 (>60 ml/min/1.73 sqM) Glucose 116 H (74-99) mg/dL Calcium 9.1 (8.4-10.2) mg/dL Magnesium 1.9 (1.6-2.3) mg/dL Total Bilirubin 0.5 (0.2-1.3) mg/dL AST 27 (14-36) U/L ALT 15 (4-34) U/L Alkaline Phosphatase 54 (38-126) U/L Troponin I (0.000-0.034) ng/mL Total Protein 6.8 (6.3-8.2) g/dL Albumin 3.9 (3.5-5.0) g/dL 05/04/23 Range/Units 11:59 WBC (3.8-10.6) k/uL RBC (3.80-5.40) m/uL Hgb (11.4-16.0) gm/dL Hct (34.0-46.0) % MCV (80.0-100.0) fL MCH (25.0-35.0) pg MCHC (31.0-37.0) g/dL RDW (11.5-15.5) % Plt Count (150-450) k/uL MPV Neutrophils % % Lymphocytes % % Monocytes % % Eosinophils % % Basophils % % Neutrophils # (1.3-7.7) k/uL Lymphocytes # (1.0-4.8) k/uL Monocytes # (0-1.0) k/uL Eosinophils # (0-0.7) k/uL Basophils # (0-0.2) k/uL PT (9.0-12.0) sec INR (<1.2) APTT (22.0-30.0) sec Sodium (137-145) mmol/L Potassium (3.5-5.1) mmol/L Chloride (98-107) mmol/L Carbon Dioxide (22-30) mmol/L Anion Gap mmol/L BUN (7-17) mg/dL Creatinine (0.52-1.04) mg/dL Est GFR (CKD-EPI)AfAm (>60 ml/min/1.73 sqM) Est GFR (CKD-EPI)NonAf (>60 ml/min/1.73 sqM) Glucose (74-99) mg/dL Calcium (8.4-10.2) mg/dL Magnesium (1.6-2.3) mg/dL Total Bilirubin (0.2-1.3) mg/dL AST (14-36) U/L ALT (4-34) U/L Alkaline Phosphatase (38-126) U/L Troponin I 0.097 H* (0.000-0.034) ng/mL Total Protein (6.3-8.2) g/dL Albumin (3.5-5.0) g/dL Critical Care Time Critical Care Time: Yes Total Critical Care Time: 31 Disposition Clinical Impression: Acute coronary syndrome Disposition: ADMITTED IP TO THIS [facility] Condition: Serious Is patient prescribed a controlled substance at d/c from ED?: No Referrals: Kev Waddell MD [Primary Care Provider] - 1-2 days Time of Disposition: 13:52
[2023-05-04 12:11] LABS: Basophils % (A) 0 %; Eosinophils # (A) 0.3 k/uL (0-0.7); Eosinophils % (A) 6 %; HCT 39.2 % (34.0-46.0); HGB 12.9 gm/dL (11.4-16.0); Lymphocytes # (A) 1.6 k/uL (1.0-4.8); Lymphocytes % (A) 26 %; MCH 32.9 pg (25.0-35.0); MCV 99.9 fL (80.0-100.0); Mean Platelet Volume 10.1; Monocytes # (A) 0.4 k/uL (0-1.0); Monocytes % (A) 6 %; Neutrophils # (A) 3.8 k/uL (1.3-7.7); Neutrophils % (A) 61 %; Platelet Count 130 k/uL (150-450); RBC 3.93 m/uL (3.80-5.40); RDW 12.4 % (11.5-15.5); WBC 6.2 k/uL (3.8-10.6)
[2023-05-04 12:22] LABS: Prothrombin Time 10.7 sec (9.0-12.0)
--- NOTE | 2023-05-04 12:25 | XR ---
EXAMINATION TYPE: XR chest 2V DATE OF EXAM: 05/04/2023 COMPARISON: 09/22/2021 HISTORY: 87-year-old female with chest pain TECHNIQUE: AP and lateral views FINDINGS: Heart upper limits of normal in size. Median sternotomy wires and post-CABG clips. Coronary stent not ed. Hyperinflation. No consolidation or pleural effusion. IMPRESSION: COPD. Post-CABG changes. No definite acute process.
[2023-05-04 12:28] LABS: ALT 15 U/L (4-34); AST 27 U/L (14-36); African American GFR (CKD) 46 (>60 ml/min/1.73 sqM); Albumin 3.9 g/dL (3.5-5.0); Alkaline Phosphatase 54 U/L (38-126); Anion Gap 8 mmol/L; Blood Urea Nitrogen 29 mg/dL (7-17); Calcium 9.1 mg/dL (8.4-10.2); Carbon Dioxide 26 mmol/L (22-30); Chloride 106 mmol/L (98-107); Glucose 116 mg/dL (74-99); Magnesium 1.9 mg/dL (1.6-2.3); Non-African American GFR(CKD) 40 (>60 ml/min/1.73 sqM); Potassium 4.4 mmol/L (3.5-5.1); Sodium 140 mmol/L (137-145); Total Bilirubin 0.5 mg/dL (0.2-1.3); Total Protein 6.8 g/dL (6.3-8.2)
[2023-05-04] MEDS ORDERED: NITROGLYCERIN SL TABS 0.4 MG TAB SUBLINGUAL PRN (13:53)
[2023-05-04] MEDS ORDERED: HEPARIN SODIUM 1,000 UN/ML (10ML VL) IV ONE (13:53)
[2023-05-04] MEDS: HEPARIN SOD,PORK IN 0.45% NACL 25,000 UNIT in 0.45% NACL 1 250ML.BAG IV SCH (15:55)
[2023-05-04] MEDS ORDERED: traMADol 50 MG TAB PO PRN (17:04)
[2023-05-04] MEDS: NITROGLYCERIN OINT 1 INCH/GM PACKET TOPICAL SCH ×2 (18:01→23:33)
[2023-05-04] MEDS: lisinopriL 20 MG TAB PO SCH (20:57)
[2023-05-04] MEDS: CALCIUM CARBONATE 500 MG CHEWABLE PO SCH (20:57)
[2023-05-04] MEDS: METOPROLOL TARTRATE 25 MG TAB PO SCH (20:57)
[2023-05-04] MEDS ORDERED: ATORVASTATIN 20 MG TAB PO SCH (21:00)
[2023-05-04 23:13] LABS: INR 1.1 (<1.2); Partial Thromboplastin Time 59.3 sec (22.0-30.0); Prothrombin Time 11.1 sec (9.0-12.0)
[2023-05-05] MEDS: NITROGLYCERIN OINT 1 INCH/GM PACKET TOPICAL SCH ×3 (06:15→19:12)
[2023-05-05] MEDS ORDERED: HEPARIN SODIUM,PORCINE 10,000 UNIT in SODIUM CHLORIDE 0.9% 1,000 ML IRRIGATION PRN (07:00)
[2023-05-05] MEDS ORDERED: HEPARIN SODIUM,PORCINE 2,500 UNIT in SODIUM CHLORIDE 0.9% 250 ML IRRIGATION PRN (07:00)
[2023-05-05] MEDS ORDERED: ALPRAZolam 0.25 MG TAB PO PRN (08:17)
[2023-05-05] MEDS ORDERED: ASPIRIN 325 MG TAB PO STA (08:17)
[2023-05-05] MEDS ORDERED: ALPRAZolam 0.5 MG TAB PO PRN (08:17)
[2023-05-05] MEDS ORDERED: NITROGLYCERIN SL TABS 0.4 MG TAB SUBLINGUAL PRN (08:17)
[2023-05-05] MEDS ORDERED: ATORVASTATIN 80 MG TAB PO STA (08:17)
[2023-05-05] MEDS ORDERED: ASPIRIN 325 MG TAB PO SCH (09:00)
[2023-05-05] MEDS: lisinopriL 20 MG TAB PO SCH ×2 (09:57→20:28)
[2023-05-05] MEDS: OXYBUTYNIN XL 5 MG TAB.ER.24 PO SCH (09:57)
[2023-05-05] MEDS: CLOPIDOGREL 75 MG TAB PO SCH (09:57)
[2023-05-05] MEDS: METOPROLOL TARTRATE 25 MG TAB PO SCH ×2 (09:57→20:28)
[2023-05-05] MEDS: ISOSORBIDE MONONITRATE ER 60 MG TAB.ER.24H PO SCH (09:57)
[2023-05-05] MEDS: CALCIUM CARBONATE 500 MG CHEWABLE PO SCH ×2 (09:57→20:28)
[2023-05-05] MEDS: PANTOPRAZOLE 40 MG TABLET PO SCH (09:57)
[2023-05-05] MEDS: amLODIPine 2.5 MG TAB PO SCH (09:57)
[2023-05-05] MEDS: SODIUM CHLORIDE 0.9% 1,000 ML IV SCH ×2 (10:06→20:27)
--- NOTE | 2023-05-05 10:32 | P.CRDCN ---
History of Present Illness Consult date: 05/05/23 Reason for Consult (text): acs History of present illness: HISTORY OF PRESENTING ILLNESS This is an 87-year-old female patient of Dr. Ceuto past medical history significant for coronary artery disease status post 5 vessel CABG 2011, PCI of t he mid RCA in 2011, PCI of the proximal D1 in 2012, hypertension, dyslipidemia, former tobacco use, Gastric ulcer, gastritis. We have been asked to see in consultation for acute coronary syndrome. Patient gives history that she developed pressure in her chest and pain weakness in bilateral arms that have been going on for a couple days on and off. She states she's been taking all of her medications as directed. She states she's checked her blood pressure at home and that was normal for her. Patient is pain-free at the time of this evaluation. Blood pressure readings have been elevated 146/12640/72. Heart rate is in the 50s to 70s. EKG reveals sinus rhythm, T wave inversions Chest x-ray: COPD. No definite acute process. WBC 6.2, hemoglobin 12.9, platelet count 130. INR 1. Electrolytes normal, BUN 29 creatinine 1.21 which is patient's baseline. Blood sugar 116. Magnesium 1.9. Liver function tests are normal. Troponin 0.097, 0.093 and 0.126. Home cardiac medications: Amlodipine 2.5 mg daily aspirin 81 mg daily, Lipitor 20 mild grams at bedtime, Imdur 60 mg daily, lisinopril 20 mg twice daily, Lopressor 25 mg twice daily, Nitrostat as needed. Echocardiogram 09/2021: EF 52%, mild MR, [id number] TR. Lexiscan in 2016 in the office, negative for reversible ischemia REVIEW OF SYSTEMS At the time of my exam: CONSTITUTIONAL: Denies fever or chills. CARDIOVASCULAR: + chest pain,Denies shortness of breath, orthopnea, PND or palpitations. RESPIRATORY: Denies cough. GASTROINTESTINAL: +nausea Denies abdominal pain, diarrhea, constipation, vomiting. MUSCULOSKELETAL: Denies myalgias. NEUROLOGIC: Denies numbness, tingling, headacbe or weakness. ENDOCRINE: Denies fatigue, weight change, polydipsia or polyurina. GENITOURINARY: Denies burning, hematuria or urgency with micturation. HEMATOLOGIC: Denies history of anemia or bleeding. PHYSICAL EXAMINATION CONSTITUTIONAL: No apparent distress. HEENT: Head is normocephalic. Pupils are equal, round. Sclerae anicteric. Mucous membranes of the mouth are moist. No JVD. No carotid bruit. CHEST EXAMINATION: Lungs are clear to auscultation. No chest wall tenderness is noted on palpation or with deep breathing. HEART EXAMINATION: Regular rate and rhythm. S1, S2 heard. Systolic ejection murmur, No gallops or rub. ABDOMEN: Soft, nontender. Positive bowel sounds. EXTREMITIES: 2+ peripheral pulses, no lower extremity edema and no calf tenderness. NEUROLOGIC EXAMINATION: Patient is awake, alert and oriented x3. ASSESSMENT Non-ST elevated myocardial infarction Coronary artery disease status post 5 vessel CABG 2011, PCI of the mid RCA in 2011, PCI of the proximal D1 in 2012 Hypertension, uncontrolled Dyslipidemia Former tobacco use History of gastric ulcer PLAN Resume patient's home cardiac medications Obtain echocardiogram Patient scheduled for cardiac catheterization later today. Further recommendations based on clinical course Nurse Practitioner note has been reviewed, I agree with a documented findings and plan of care. Patient was seen and examined. Past Medical History Past Medical History: Coronary Artery Disease (CAD), COPD, CVA/TIA, Eye Disorder, GERD/Reflux, GI Bleed, Hyperlipidemia, Hypertension, Myocardial Infarction (CT) Additional Past Medical History / Comment(s): hx bleeding ulcer, glaucoma, MACULAR DEGENERATION Last Myocardial Infarction Date:: 2011 History of Any Multi-Drug Resistant Organisms: None Reported Past Surgical History: Cholecystectomy, Coronary Bypass/CABG, Heart Catheterization With Stent Additional Past Surgical History / Comment(s): total 4 stents, CABG May 2012, vein stripping, Past Anesthesia/Blood Transfusion Reactions: No Reported Reaction Additional Past Anesthesia/Blood Transfusion Reaction / Comment(s): no history of blood transfusions Date of Last Stent Placement:: 01/2013 Past Psychological History: No Psychological Hx Reported Smoking Status: Former smoker Past Alcohol Use History: Occasional Additional Past Alcohol Use History / Comment(s): STARTED SMOKING AT AGE 15 AND QUIT IN 2011 SMOKED 1PPD Past Drug Use History: None Reported - Past Family History Mother Family Medical History: Myocardial Infarction (CT) Father Family Medical History: Cancer Additional Family Medical History / Comment(s): lung Brother(s) Family Medical History: Cancer, Coronary Artery Disease (CAD), Myocardial Infarction (CT) Additional Family Medical History / Comment(s): multiple borthers with heart disease and CT's. Medications and Allergies Home Medications Medication Instructions Recorded Confirmed Type Nitroglycerin Sl Tabs [Nitrostat] 0.4 mg SL Q5M PRN 06/08/15 05/04/23 History Metoprolol Tartrate 25 mg PO BID 09/03/15 05/04/23 History Aspirin EC [Ecotrin Low Dose] 81 mg PO DAILY 09/22/21 05/04/23 History Calcium Carbonate [Calcium] 600 mg PO BID 09/22/21 05/04/23 History Celecoxib [CeleBREX] 200 mg PO DAILY 09/22/21 05/04/23 History Isosorbide Mononitrate ER [Imdur] 60 mg PO DAILY 09/22/21 05/04/23 History Oxybutynin Xl [Ditropan XL] 5 mg PO DAILY 09/22/21 05/04/23 History amLODIPine [Norvasc] 2.5 mg PO DAILY 09/22/21 05/04/23 History lisinopriL [Zestril] 20 mg PO BID #60 tab 09/23/21 05/04/23 Rx Atorvastatin [Lipitor] 20 mg PO HS 05/04/23 05/04/23 History Baclofen 5 mg PO DAILY 05/04/23 05/04/23 History Ibandronate Sodium 150 mg PO Q30D 05/04/23 05/04/23 History Pantoprazole [Protonix] 40 mg PO DAILY 05/04/23 05/04/23 History traMADol HCL 25 mg PO Q6H PRN 05/04/23 05/04/23 History Allergies Allergy/AdvReac Type Severity Reaction Status Date / Time acetaminophen Allergy Severe hives, BP Verified 05/04/23 13:15 dropped and pt passed out codeine Allergy Mild Nausea & Verified 05/04/23 13:15 Vomiting Physical Exam Vitals: Vital Signs Temp Pulse Pulse Resp BP BP Pulse Ox 05/05/23 07:57 93 L 05/05/23 04:00 54 L 16 162/72 98 05/04/23 23:35 97.9 F 92 18 126/60 95 05/04/23 20:44 98.1 F 70 17 149/67 95 05/04/23 19:00 58 L 155/71 93 L 05/04/23 18:01 55 L 18 141/67 94 L 05/04/23 16:00 53 L 16 141/64 93 L 05/04/23 15:00 54 L 16 107/71 97 05/04/23 14:00 53 L 16 120/56 93 L 05/04/23 13:00 55 L 123/65 93 L 05/04/23 12:33 54 L 16 135/65 93 L 05/04/23 11:17 97.5 F L 56 L 16 157/62 93 L Intake and Output 05/04/23 05/05/23 05/05/23 22:59 06:59 14:59 Intake Total 44.442 Balance 44.442 Intake: Intake, IV Titration 44.442 Amount Heparin Sod,Pork in 0.45% 44.442 NaCl 25,000 unit In 0.45 % NaCl 1 250ml.bag @ 12 UNITS/KG/HR 5.498 mls/hr IV .Q24H [facility] Rx#: [id number] Other: Voiding Method Toilet Toilet Weight 45.813 kg Results 05/05/23 08:00 05/04/23 11:59 Cardiac Enzymes 05/04/23 05/04/23 05/04/23 Range/Units 11:59 11:59 15:19 AST 27 (14-36) U/L Troponin I 0.097 H* 0.093 H* (0.000-0.034) ng/mL 05/04/23 Range/Units 18:52 AST (14-36) U/L Troponin I 0.126 H* (0.000-0.034) ng/mL Coagulation 05/04/23 05/04/23 Range/Units 11:59 22:35 PT 10.7 11.1 (9.0-12.0) sec APTT 22.0 59.3 H (22.0-30.0) sec CBC 05/04/23 Range/Units 11:59 WBC 6.2 (3.8-10.6) k/uL RBC 3.93 (3.80-5.40) m/uL Hgb 12.9 (11.4-16.0) gm/dL Hct 39.2 (34.0-46.0) % Plt Count 130 L (150-450) k/uL Comprehensive Metabolic Panel 05/04/23 Range/Units 11:59 Sodium 140 (137-145) mmol/L Potassium 4.4 (3.5-5.1) mmol/L Chloride 106 (98-107) mmol/L Carbon Dioxide 26 (22-30) mmol/L BUN 29 H (7-17) mg/dL Creatinine 1.21 H (0.52-1.04) mg/dL Glucose 116 H (74-99) mg/dL Calcium 9.1 (8.4-10.2) mg/dL AST 27 (14-36) U/L ALT 15 (4-34) U/L Alkaline Phosphatase 54 (38-126) U/L Total Protein 6.8 (6.3-8.2) g/dL Albumin 3.9 (3.5-5.0) g/dL Current Medications Generic Name Dose Route Start Last Admin Trade Name Freq PRN Reason Stop Dose Admin Amlodipine Besylate 2.5 mg 05/05/23 09:00 Amlodipine 2.5 Mg Tab PO DAILY [facility] Aspirin 81 mg 05/05/23 09:00 Aspirin 81 Mg PO DAILY [facility] Atorvastatin Calcium 40 mg 05/05/23 21:00 Atorvastatin 40 Mg Tab PO HS [facility] Calcium Carbonate/Glycine 500 mg 05/04/23 21:00 05/04/23 20:57 Calcium Carbonate 500 Mg Chewable PO 500 mg BID [facility] Administration Heparin Sodium/Sodium Chloride 250 mls @ 5.498 mls/hr 05/04/23 14:00 05/05/23 00:00 25,000 unit/ Sodium Chloride IV 12 units/kg/hr .Q24H [facility] 5.498 mls/hr Titration Protocol 12 UNITS/KG/HR Isosorbide Mononitrate 60 mg 05/05/23 09:00 Isosorbide Mononitrate Er 60 Mg Tab.Er.24h PO DAILY [facility] Lisinopril 20 mg 05/04/23 21:00 05/04/23 20:57 Lisinopril 20 Mg Tab PO 20 mg BID [facility] Administration Metoprolol Tartrate 25 mg 05/04/23 21:00 05/04/23 20:57 Metoprolol Tartrate 25 Mg Tab PO 25 mg BID [facility] Administration Nitroglycerin 0.4 mg 05/04/23 13:53 Nitroglycerin Sl Tabs 0.4 Mg Tab SUBLINGUAL Q5M PRN Chest Pain Nitroglycerin 0.5 inch 05/04/23 18:00 05/05/23 06:15 Nitroglycerin Oint 1 Inch/Gm Packet TOPICAL 0.5 inch Q6HR [facility] Administration Oxybutynin Chloride 5 mg 05/05/23 09:00 Oxybutynin Xl 5 Mg Tab.Er.24 PO DAILY [facility] Pantoprazole Sodium 40 mg 05/05/23 09:00 Pantoprazole 40 Mg Tablet PO DAILY [facility] Tramadol HCl 25 mg 05/04/23 17:04 Tramadol 50 Mg Tab PO Q6H PRN Pain Intake and Output 05/04/23 05/05/23 05/05/23 22:59 06:59 14:59 Intake Total 44.442 Balance 44.442 Intake: Intake, IV Titration 44.442 Amount Heparin Sod,Pork in 0.45% 44.442 NaCl 25,000 unit In 0.45 % NaCl 1 250ml.bag @ 12 UNITS/KG/HR 5.498 mls/hr IV .Q24H [facility] Rx#: [id number] Other: Voiding Method Toilet Toilet Weight 45.813 kg 05/04/23 11:59 05/04/23 11:59
[2023-05-05 11:26] LABS: ALT 14 U/L (4-34); AST 25 U/L (14-36); African American GFR (CKD) 60 (>60 ml/min/1.73 sqM); Albumin 3.4 g/dL (3.5-5.0); Alkaline Phosphatase 61 U/L (38-126); Anion Gap 5 mmol/L; Blood Urea Nitrogen 25 mg/dL (7-17); Calcium 8.7 mg/dL (8.4-10.2); Carbon Dioxide 27 mmol/L (22-30); Chloride 108 mmol/L (98-107); Glucose 83 mg/dL (74-99); Non-African American GFR(CKD) 52 (>60 ml/min/1.73 sqM); Potassium 4.3 mmol/L (3.5-5.1); Sodium 140 mmol/L (137-145); Total Bilirubin 0.5 mg/dL (0.2-1.3); Total Protein 6.1 g/dL (6.3-8.2)
[2023-05-05 11:29] LABS: Basophils % (A) 0 %; Eosinophils # (A) 0.4 k/uL (0-0.7); Eosinophils % (A) 7 %; HCT 38.6 % (34.0-46.0); HGB 12.7 gm/dL (11.4-16.0); Lymphocytes # (A) 1.8 k/uL (1.0-4.8); Lymphocytes % (A) 36 %; MCH 32.9 pg (25.0-35.0); MCHC 32.9 g/dL (31.0-37.0); Monocytes # (A) 0.3 k/uL (0-1.0); Monocytes % (A) 7 %; Neutrophils # (A) 2.4 k/uL (1.3-7.7); Neutrophils % (A) 48 %; RBC 3.86 m/uL (3.80-5.40); RDW 12.4 % (11.5-15.5); WBC 4.9 k/uL (3.8-10.6)
[2023-05-05 11:32] LABS: Mean Platelet Volume 10.2; Platelet Count 124 k/uL (150-450)
--- NOTE | 2023-05-05 13:17 | P.HPIM ---
History of Present Illness H&P Date: 05/05/23 History of present illness; patient 87-year-old lady with past medical history significant for coronary artery disease, hypertension, hyperlipidemia who presented to The ER because of chest pain. Patient stated that she has been having Recent chest pressure for the last couple of days and has been taking sublingual nitro on occasions. Yesterday while working at home she started experiencing severe chest pressure central in location, radiating down her both arms. There was complain of shortness of breath that time as well. Patient also felt that her legs were weak. There was no complaint of lightheadedness or dizziness. Denies any nausea or vomiting. Because of this chest pain, patient came to the ER Initial lab work done in the ER showed WBC 6.2, hemoglobin 12.9, platelet count 1:30, sodium 140, potassium 4.4, BUN 20, creatinine 1.21 initial troponin was0.097 Patient was admitted to medicine service REVIEW OF SYSTEMS: CONSTITUTIONAL: No fever, no malaise, no fatigue. HEENT: No recent visual problems or hearing problems. Denied any sore throat. CARDIOVASCULAR: As mentioned in HPI PULMONARY: no cough, no hemoptysis. GASTROINTESTINAL: No diarrhea, no nausea, no vomiting, no abdominal pain. NEUROLOGICAL: No headaches, no weakness, no numbness. HEMATOLOGICAL: Denies any bleeding or petechiae. GENITOURINARY: Denies any burning micturition, frequency, or urgency. MUSCULOSKELETAL/RHEUMATOLOGICAL: Denies any joint pain, swelling, or any muscle pain. ENDOCRINE: Denies any polyuria or polydipsia. The rest of the 14-point review of systems is negative. PHYSICAL EXAMINATION: GENERAL: The patient is alert and oriented x3, not in any acute distress. Well developed, well nourished. HEENT: Pupils are round and equally reacting to light. EOMI. No scleral icterus. No conjunctival pallor. Normocephalic, atraumatic. No pharyngeal erythema. No thyromegaly. CARDIOVASCULAR: S1 and S2 present. No murmurs, rubs, or gallops. PULMONARY: Chest is clear to auscultation, no wheezing or crackles. ABDOMEN: Soft, nontender, nondistended, normoactive bowel sounds. No palpable organomegaly. MUSCULOSKELETAL: No joint swelling or deformity. EXTREMITIES: No cyanosis, clubbing, or pedal edema. NEUROLOGICAL: Gross neurological examination did not reveal any focal deficits. SKIN: No rashes. Assessment and plan Non-ST elevation DC Hypertension Hyperlipidemia Plan; Monitor vital signs Monitor CBC Monitor CMP Trend troponins Continue pharmacy dose heparin 2-D echo ordered Resume home meds Consult cardiology Past Medical History Past Medical History: Coronary Artery Disease (CAD), COPD, CVA/TIA, Eye Disorder, GERD/Reflux, GI Bleed, Hyperlipidemia, Hypertension, Myocardial Infarction (DC) Additional Past Medical History / Comment(s): hx bleeding ulcer, glaucoma, MACULAR DEGENERATION Last Myocardial Infarction Date:: 2011 History of Any Multi-Drug Resistant Organisms: None Reported Past Surgical History: Cholecystectomy, Coronary Bypass/CABG, Heart Catheterization With Stent Additional Past Surgical History / Comment(s): total 4 stents, CABG May 2012, vein stripping, Past Anesthesia/Blood Transfusion Reactions: No Reported Reaction Additional Past Anesthesia/Blood Transfusion Reaction / Comment(s): no history of blood transfusions Date of Last Stent Placement:: 01/2013 Past Psychological History: No Psychological Hx Reported Smoking Status: Former smoker Past Alcohol Use History: Occasional Additional Past Alcohol Use History / Comment(s): STARTED SMOKING AT AGE 15 AND QUIT IN 2011 SMOKED 1PPD Past Drug Use History: None Reported - Past Family History Mother Family Medical History: Myocardial Infarction (DC) Father Family Medical History: Cancer Additional Family Medical History / Comment(s): lung Brother(s) Family Medical History: Cancer, Coronary Artery Disease (CAD), Myocardial Infarction (DC) Additional Family Medical History / Comment(s): multiple borthers with heart disease and DC's. Medications and Allergies Home Medications Medication Instructions Recorded Confirmed Type RX: Nitroglycerin Sl Tabs 0.4 mg SL Q5M PRN 06/08/15 05/04/23 History [Nitrostat] RX: Metoprolol Tartrate 25 mg PO BID 09/03/15 05/04/23 History RX: Aspirin EC [Ecotrin Low Dose] 81 mg PO DAILY 09/22/21 05/04/23 History RX: Calcium Carbonate [Calcium] 600 mg PO BID 09/22/21 05/04/23 History RX: Celecoxib [CeleBREX] 200 mg PO DAILY 09/22/21 05/04/23 History RX: Isosorbide Mononitrate ER 60 mg PO DAILY 09/22/21 05/04/23 History [Imdur] RX: Oxybutynin Xl [Ditropan XL] 5 mg PO DAILY 09/22/21 05/04/23 History RX: amLODIPine [Norvasc] 2.5 mg PO DAILY 09/22/21 05/04/23 History RX: lisinopriL [Zestril] 20 mg PO BID #60 tab 09/23/21 05/04/23 Rx Atorvastatin [Lipitor] 20 mg PO HS 05/04/23 05/04/23 History RX: Baclofen 5 mg PO DAILY 05/04/23 05/04/23 History RX: Ibandronate Sodium 150 mg PO Q30D 05/04/23 05/04/23 History RX: Pantoprazole [Protonix] 40 mg PO DAILY 05/04/23 05/04/23 History RX: traMADol HCL 25 mg PO Q6H PRN 05/04/23 05/04/23 History Allergies Allergy/AdvReac Type Severity Reaction Status Date / Time acetaminophen Allergy Severe hives, BP Verified 05/04/23 13:15 dropped and pt passed out codeine Allergy Mild Nausea & Verified 05/04/23 13:15 Vomiting Physical Exam Vitals: Vital Signs Temp Pulse Pulse Resp BP BP Pulse Ox 05/05/23 08:00 98 F 56 L 18 146/65 95 05/05/23 07:57 93 L 05/05/23 04:00 54 L 16 162/72 98 05/04/23 23:35 97.9 F 92 18 126/60 95 05/04/23 20:44 98.1 F 70 17 149/67 95 05/04/23 19:00 58 L 155/71 93 L 05/04/23 18:01 55 L 18 141/67 94 L 05/04/23 16:00 53 L 16 141/64 93 L 05/04/23 15:00 54 L 16 107/71 97 05/04/23 14:00 53 L 16 120/56 93 L 05/04/23 13:00 55 L 123/65 93 L 05/04/23 12:33 54 L 16 135/65 93 L 05/04/23 11:17 97.5 F L 56 L 16 157/62 93 L Intake and Output 05/04/23 05/05/23 05/05/23 22:59 06:59 14:59 Intake Total 44.442 Balance 44.442 Intake: Intake, IV Titration 44.442 Amount Heparin Sod,Pork in 0.45% 44.442 NaCl 25,000 unit In 0.45 % NaCl 1 250ml.bag @ 12 UNITS/KG/HR 5.498 mls/hr IV .Q24H HERMELINDA Rx#: [id number] Other: Voiding Method Toilet Toilet Weight 45.813 kg Results CBC & Chem 7: 05/05/23 08:00 05/05/23 08:00 Labs: Abnormal Lab Results - Last 24 Hours (Table) 05/04/23 05/04/23 05/04/23 Range/Units 11:59 11:59 11:59 Plt Count 130 L (150-450) k/uL APTT (22.0-30.0) sec BUN 29 H (7-17) mg/dL Creatinine 1.21 H (0.52-1.04) mg/dL Glucose 116 H (74-99) mg/dL Troponin I 0.097 H* (0.000-0.034) ng/mL 05/04/23 05/04/23 05/04/23 Range/Units 15:19 18:52 22:35 Plt Count (150-450) k/uL APTT 59.3 H (22.0-30.0) sec BUN (7-17) mg/dL Creatinine (0.52-1.04) mg/dL Glucose (74-99) mg/dL Troponin I 0.093 H* 0.126 H* (0.000-0.034) ng/mL 05/05/23 Range/Units 08:00 Plt Count (150-450) k/uL APTT 46.2 H (22.0-30.0) sec BUN (7-17) mg/dL Creatinine (0.52-1.04) mg/dL Glucose (74-99) mg/dL Troponin I (0.000-0.034) ng/mL Thrombosis Risk Factor Assmnt - Choose All That Apply Any of the Below Risk Factors Present?: Yes Each Factor Represents 1 point: Abnormal pulmonary function (COPD) Other Risk Factors: Yes Each Risk Factor Represents 3 Points: Age 75 years or older Other congenital or acquired thrombophilia - If yes, enter type in comment: No Thrombosis Risk Factor Assessment Total Risk Factor Score: 4 Thrombosis Risk Factor Assessment Level: Moderate Risk
[2023-05-05 13:27] VITALS: PULSE 52
[2023-05-05] MEDS: HEPARIN SOD,PORK IN 0.45% NACL 25,000 UNIT in 0.45% NACL 1 250ML.BAG IV SCH (13:36)
[2023-05-05] MEDS ORDERED: IV FLUID CONTINUATION 700 ML IV ONE (14:17)
[2023-05-05 14:26] VITALS: BMI 18.4
[2023-05-05] MEDS ORDERED: VERAPAMIL 2.5 MG/ML 2 ML AMP ONE (14:26)
[2023-05-05] MEDS ORDERED: fentaNYL (PF) 50 MCG/ML 2 ML AMP ONE (14:34)
[2023-05-05] MEDS ORDERED: LIDOCAINE 1% INJ 10MG/ML (5 ML VIAL-PF) SQ ONE (14:49)
[2023-05-05] MEDS ORDERED: VERAPAMIL SYRINGE (5 MG/10 ML) INTRAARTER ONE (14:50)
[2023-05-05] MEDS ORDERED: MIDAZOLAM 2 MG/2 ML VIAL IVP ONE (14:50)
[2023-05-05] MEDS: HEPARIN SODIUM 1,000 UN/ML (10ML VL) IVP ONE ×3 (14:58→15:20)
[2023-05-05 15:31] LABS: Chol/HDL Ratio 2.08 Ratio; LDL Cholesterol,Calculated 47.3 mg/dL (0.0-131.0)
[2023-05-05] MEDS ORDERED: HEPARIN SODIUM 1,000 UN/ML (10ML VL) ONE (15:42)
[2023-05-05] MEDS: HEPARIN SODIUM 1,000 UN/ML (10ML VL) IV ONE ×2 (15:43→15:51)
[2023-05-05] MEDS ORDERED: IOPAMIDOL-370 100ML BTL INJ ONE (15:46)
--- NOTE | 2023-05-05 16:16 | CA ---
Transthoracic Echo Report Name: Monica Guallpa Age: 87 Gender: F : 1935 Exam Date: 05/05/2023 08:55 Exam Location: [facility] Ht (in): 62 Wt (lb): 101 Ordering Physician: Mary Dsouza Attending/Referring Phys: [id number], [employer] Charisse Nur RDCS Procedure CPT: Indications: LVF Cardiac Hx: Hx of CABG Technical Quality: Good Contrast 1: Total Dose (mL): Contrast 2: Total Dose (mL): MEASUREMENTS (Male / Female) Normal Values 2D ECHO LV Diastolic Diameter PLAX 4.7 cm 4.2 - 5.9 / 3.9 - 5.3 cm LV Systolic Diameter PLAX 3.1 cm IVS Diastolic Thickness 0.9 cm 0.6 - 1.0 / 0.6 - 0.9 cm LVPW Diastolic Thickness 1.0 cm 0.6 - 1.0 / 0.6 - 0.9 cm LV Relative Wall Thickness 0.4 RV Internal Dim ED PLAX 3.2 cm LA Systolic Diameter LX 3.6 cm 3.0 - 4.0 / 2.7 - 3.8 cm LV Diastolic Volume MOD 4C 71.0 cm??? LV Systolic Volume MOD 4C 33.9 cm??? LV Ejection Fraction MOD 4C 52.3 % LV Cardiac Index MOD 4C 1525.5 cm???/min???m??? LV Diastolic Length 4C 7.0 cm LV Systolic Length 4C 5.4 cm LV Diastolic Volume MOD 2C 75.1 cm??? LV Systolic Volume MOD 2C 39.4 cm??? LV Ejection Fraction MOD 2C 47.6 % LV Cardiac Index MOD 2C 1470.7 cm???/min???m??? LV Diastolic Length 2C 6.5 cm LV Systolic Length 2C 5.2 cm LA Volume 45.7 cm??? 18 - 58 / 22 - 52 cm??? M-MODE Aortic Root Diameter MM 3.1 cm MV E Point Septal Separation 0.8 cm AV Cusp Separation MM 2.1 cm DOPPLER AV Peak Velocity 151.0 cm/s AV Peak Gradient 9.1 mmHg AI Peak Velocity 278.0 cm/s AI Peak Gradient 30.9 mmHg AI Pressure Half Time 943.2 ms MV Area PHT 3.3 cm??? Mitral E Point Velocity 99.3 cm/s Mitral A Point Velocity 88.5 cm/s Mitral E to A Ratio 1.1 MV Deceleration Time 228.8 ms TR Peak Velocity 323.3 cm/s TR Peak Gradient 41.8 mmHg Right Ventricular Systolic Press 46.2 mmHg FINDINGS Left Ventricle Left ventricular ejection fraction is estimated at 50 %. Left ventricular cavity size normal. Left ventricular wall thickness normal. Basel inferior hypokinesis, basel inferio septal wall hypokinesis. Right Ventricle Normal right ventricular size. Moderate pulmonary hypertension. Right ventricular systolic pressure estimated at 46 mm hg. Right Atrium Normal right atrial size. Left Atrium Normal left atrial size. Mitral Valve Mitral valve thickened. Mild mitral annular calcification. Mild mitral regurgitation. Aortic Valve Thickened aortic valve without stenosis. No aortic regurgitation. Tricuspid Valve Structurally normal tricuspid valve. [id number] tricuspid regurgitation. Pulmonic Valve Structurally normal pulmonic valve. No pulmonic regurgitation. Pericardium Normal pericardium. No pericardial effusion. Aorta Normal size aortic root and proximal ascending aorta. CONCLUSIONS Left ventricular ejection fraction 50% Basal inferior, inferior septal hypokinesis RVSP 46 Mild mitral regurgitation Mild to moderate tricuspid regurgitation Previewed by: Dr. Norman Staples DO (Electronically Signed) Final Date: 05 May 2023 16:15
[2023-05-05] MEDS ORDERED: RX INFO: IV CONTRAST WAS GIVEN 1 EACH MISC MISCELLANE PRN (16:35)
--- NOTE | 2023-05-05 16:44 | P.PRCINT ---
Percutaneous Coronary Int. - Percutaneous Coronary Intervention Percutaneous Coronary Intervention: PROCEDURES PERFORMED: Left heart catheterization, bilateral coronary angiography, ultrasound guided arterial access, BLANK to LAD angiography, IVUS RCA, PCI RCA 4.0 x 28mm Xience SOFI, post dilated with a 4.0 NC balloon INDICATION: Non-STEMI CONSENT:I have discussed the risks, benefits and alternative therapies for the above-mentioned procedure and for both sedation/analgesia as well as necessary blood product administration, if indicated, as they pertain to this patient. The patient has indicated understanding and acceptance of the risks and procedures discussed. PROCEDURE: After the risks, benefits and alternatives of the above mentioned procedure explained in detail with the patient, informed consent was obtained. Patient was taken to the catheterization lab and prepped and draped in usual fashion. Ultrasound guidance was used to assess for arterial access. 1% lidocaine was used to anesthetize the left radial artery. A 6-Nepalese sheath was placed in the left radial artery using modified Seldinger technique and ultrasound guidance. Left coronary angiography was performed with a 5-Nepalese JL 4.0 catheter and right coronary angiography was performed with a 5-Nepalese JR4 catheter in various views. A 5-Nepalese FR5 catheter was inserted into the left ventricle and pressure measurements were obtained. BLANK to LAD angiography was performed with a 5-Nepalese FR4 catheter. Initially we decided to attempt iFR of the circumflex however appeared to be an acute angle bleeding and of the circumflex with inability to easily pass the wire and the culprit lesion appeared to be the RCA and therefore further attempts were aborted. From reports from 2012, the only remaining bypass graft was BLANK to LAD. The decision was made to perform PCI of the RCA. A 6-Nepalese AL 0.75 guide was used to gauge the RCA. A 0.014 was for wire was advanced into the distal PLV. A 2.25 x 12 noncompliant balloon was used to predilate the lesion and then a 3.0 x 20 mm balloon was used to predilate the lesion. Next a neurovascular ultrasound showed reference vessel 4.0 mm. Next a 4.0 x 28 mm Xience SOFI was placed. Repeat intravascular ultrasound showed mild decreased and apposition and therefore the stent was postdilated with with a 4.0 x 12 mm noncompliant balloon. Final angiograms were performed. Preintervention there was 85% stenosis and ROBSON-3 flow and postintervention there was less than 10% stenosis a nd ROBSON-3 flow. The left radial sheath was removed and a TR band was placed with hemostasis achieved. The patient tolerated the procedure well. Patient was transported back to the post catheterization holding area in stable condition. Conscious Sedation: Patient was monitored under the direct supervision of myself for conscious sedation using Versed and fentanyl for a total duration of 55 mi nutes HEMODYNAMICS: Aorta: 138/66 LV: 140/5, LVEDP 16 SELECTIVE CORONARY ARTERIOGRAPHY: LEFT MAIN: The left main is a large caliber vessel which bifurcates into the LAD and circumflex. There is no significant stenosis. LEFT ANTERIOR DESCENDING CORONARY ARTERY: LAD is a large caliber vessel which wraps around to the apex. There is a long proximal to mid LAD stent leading into a small to moderate caliber diagonal branch with mild 30% in-stent stenosis. There is 100% mid LAD stenosis. LEFT CIRCUMFLEX CORONARY ARTERY: Left circumflex is a moderate caliber vessel with a focal mid circumflex eccentric 70-80% stenosis and otherwise mild luminal irregularities.. RIGHT CORONARY ARTERY: The right coronary artery is a large caliber vessel which gives off a PDA and PLV branch and is the dominant vessel. There is a proximal long 85% RCA stenosis. The mid to distal RCA has a patent stents with "jailing "of the PDA with resultant 70-80% PDA stenosis which appears similar to prior angiograms from 2013 BLANK TO LAD: Widely patent FINAL IMPRESSION: 1. CAD as described above including proximal to mid LAD 30% stenosis, mid LAD 100% stenosis, circumflex 70-80% stenosis, proximal RCA 85% stenosis. 2. Culprit lesion appearing to be proximal RCA stenosis 3. Patent BLANK to LAD and otherwise no remaining bypass grafts 4. Status post PCI RCA 4.0 x 28mm Xience SOFI, post dilated with a 4.0 NC balloon 5. Mildly increased left sided filling pressures PLAN: 1. Aggressive risk factor modification per most recent ACC/AHA guidelines. 2. Continue delighted platelets with aspirin and Plavix for 12 months. If having more significant angina, may consider further assessment of circumflex lesion and PCI.
[2023-05-05] MEDS ORDERED: SODIUM CHLORIDE 0.9% 1,000 ML in EMPTY BAG 1 BAG IV SCH (16:45)
[2023-05-05] MEDS ORDERED: ATORVASTATIN 40 MG TAB PO SCH (21:00)
[2023-05-06] MEDS: NITROGLYCERIN OINT 1 INCH/GM PACKET TOPICAL SCH ×3 (00:29→13:46)
[2023-05-06 08:09] VITALS: BP 159/70; RESP 18; TEMP 98
[2023-05-06] MEDS: OXYBUTYNIN XL 5 MG TAB.ER.24 PO SCH (08:10)
[2023-05-06] MEDS: PANTOPRAZOLE 40 MG TABLET PO SCH (08:10)
[2023-05-06] MEDS: METOPROLOL TARTRATE 25 MG TAB PO SCH (08:10)
[2023-05-06] MEDS: lisinopriL 20 MG TAB PO SCH (08:10)
[2023-05-06] MEDS: ISOSORBIDE MONONITRATE ER 60 MG TAB.ER.24H PO SCH (08:10)
[2023-05-06] MEDS: CLOPIDOGREL 75 MG TAB PO SCH (08:10)
[2023-05-06] MEDS: CALCIUM CARBONATE 500 MG CHEWABLE PO SCH (08:11)
[2023-05-06] MEDS: amLODIPine 2.5 MG TAB PO SCH (08:11)
[2023-05-06] MEDS ORDERED: ASPIRIN 81 MG PO SCH (09:00)
[2023-05-06 09:16] LABS: Platelet Count 126 k/uL (150-450)
[2023-05-06 09:37] LABS: African American GFR (CKD) 58 (>60 ml/min/1.73 sqM); Non-African American GFR(CKD) 50 (>60 ml/min/1.73 sqM)
--- NOTE | 2023-05-06 10:41 | P.PN ---
Subjective Progress Note Date: 05/06/23 HISTORY OF PRESENTING ILLNESS This is an 87-year-old female patient of Dr. Cueto past medical history sig nificant for coronary artery disease status post 5 vessel CABG 2011, PCI of the mid RCA in 2011, PCI of the proximal D1 in 2012, hypertension, dyslipidemia, former tobacco use, Gastric ulcer, gastritis. We have been asked to see in consultation for acute coronary syndrome. Patient gives history that she developed pressure in her chest and pain weakness in bilateral arms that have been going on for a couple days on and off. She states she's been taking all of her medications as directed. She states she's checked her blood pressure at home and that was normal for her. Patient is pain-free at the time of this evaluation. Blood pressure readings have been elevated 146/19188/72. Heart rate is in the 50s to 70s. EKG reveals sinus rhythm, T wave inversions Chest x-ray: COPD. No definite acute process. WBC 6.2, hemoglobin 12.9, platelet count 130. INR 1. Electrolytes normal, BUN 29 creatinine 1.21 which is patient's baseline. Blood sugar 116. Magnesium 1.9. Liver function tests are normal. Troponin 0.097, 0.093 and 0.126. Home cardiac medications: Amlodipine 2.5 mg daily aspirin 81 mg daily, Lipitor 20 mild grams at bedtime, Imdur 60 mg daily, lisinopril 20 mg twice daily, L opressor 25 mg twice daily, Nitrostat as needed. Echocardiogram 09/2021: EF 52%, mild MR, [id number] TR. [place] in 2016 in the office, negative for reversible ischemia 05/06 Yesterday, patient underwent cardiac catheterization with Dr. Staples which revealed CAD including proximal to mid LAD 30% stenosis, mid LAD 100% stenosis, circumflex 70-80% stenosis, proximal RCA 85% stenosis. Culprit lesion appearing to be proximal RCA stenosis. Patent BLANK to LAD and otherwise no remaining bypas s grafts. Status post PCI RCA 4.0 x 28mm Xience SOFI, post dilated with a 4.0 NC balloon. Echocardiogram revealed EF of 50%, RVSP 46, mild mitral regurgitation, [id number] tricuspid regurgitation. Patient is seen today in follow-up on the cardiac stepdown unit. Patient denies having any chest pain overnight. She states she is ambulated and had no chest pain, shortness of breath lightheade dness or dizziness. Patient has been started on Plavix during this hospitalization and Lipitor increased in dose. Heart rate is in the 50s, blood pressure 137/62. PHYSICAL EXAMINATION CONSTITUTIONAL: No apparent distress. HEENT: Head is normocephalic. Pupils are equal, round. Sclerae anicteric. Mucous membranes of the mouth are moist. No JVD. No carotid bruit. CHEST EXAMINATION: Lungs are clear to auscultation. No chest wall tenderness is noted on palpation or with deep breathing. HEART EXAMINATION: Regular rate and rhythm. S1, S2 heard. Systolic ejection murmur, No gallops or rub. ABDOMEN: Soft, nontender. Positive bowel sounds. EXTREMITIES: 2+ peripheral pulses, no lower extremity edema and no calf tenderness. NEUROLOGIC EXAMINATION: Patient is awake, alert and oriented x3. ASSESSMENT Non-ST elevated myocardial infarction status post stent of the RCA 05/05 Coronary artery disease status post 5 vessel CABG 2011, PCI of the mid RCA in 2011, PCI of the proximal D1 in 2012 Hypertension, uncontrolled Dyslipidemia Former tobacco use History of gastric ulcer PLAN Continue patient on current cardiac medications Patient is cleared for discharge from cardiology and may follow up with Dr. Cueto in one week. Nurse Practitioner note has been reviewed, I agree with a documented findings and plan of care. Patient was seen and examined. Objective - Vital Signs Vital signs: Vital Signs Temp 98 F 05/06/23 08:00 Pulse 52 L 05/05/23 13:00 Resp 18 05/06/23 08:00 BP 159/70 05/06/23 08:00 Pulse Ox 96 05/06/23 08:01 FiO2 Intake & Output 05/05/23 05/06/23 05/06/23 18:59 06:59 18:59 Intake Total 635.773 Balance 635.773 Weight 45.813 kg Intake: IV 325 Intake, IV Titration 74.773 Amount Heparin Sod,Pork in 0.45% 74.773 NaCl 25,000 unit In 0.45 % NaCl 1 250ml.bag @ 12 UNITS/KG/HR 5.498 mls/hr IV .Q24H HERMELINDA Rx#: [id number] Oral 236 Other: Voiding Method Toilet # Voids 1 - Labs CBC & Chem 7: 05/06/23 08:39 05/06/23 08:39 Labs: Abnormal Lab Results - Last 24 Hours (Table) 05/05/23 05/05/23 05/05/23 Range/Units 08:00 08:00 08:00 Plt Count 124 L (150-450) k/uL APTT 46.2 H (22.0-30.0) sec Chloride 108 H (98-107) mmol/L BUN 25 H (7-17) mg/dL Total Protein 6.1 L (6.3-8.2) g/dL Albumin 3.4 L (3.5-5.0) g/dL
--- NOTE | 2023-05-06 13:02 | P.DS ---
Providers Date of admission: 05/04/23 13:57 Expected date of discharge: 05/06/23 Attending physician: Vasu Zambrano MD Consults: 05/04/23 13:53 Consult Physician Urgent Consulting Provider: Huey Renner Consult Reason/Comments: acs Do you want consulting provider notified?: Yes 05/05/23 16:36 Consult Physician Routine Consulting Provider: [facility] Consult Reason/Comments: Post Interventional Patient Do you want consulting provider notified?: Already Contacted Primary care physician: Kev Waddell Hospital Course: Discharge diagnoses; Non-ST elevation DC Hypertension Hyperlipidemia Hospital course; patient 87-year-old lady with past medical history significant for coronary artery disease, hypertension, hyperlipidemia who presented to The ER because of chest pain. Patient stated that she has been having Recent chest pressure for the last couple of days and has been taking sublingual nitro on occasions. Yesterday while working at home she started experiencing severe chest pressure central in location, radiating down her both arms. There was complain of shortness of breath that time as well. Patient also felt that her legs were weak. There was no complaint of lightheadedness or dizziness. Denies any nausea or vomiting. Because of this chest pain, patient came to the ER Initial lab work done in the ER showed WBC 6.2, hemoglobin 12.9, platelet count 1:30, sodium 140, potassium 4.4, BUN 20, creatinine 1.21 initial troponin was0.097 Patient was admitted to medicine service 05/06. Patient seen and examined. Cardiac cath done showed RCA stenosis, status post PCI of RCA. Being discharged on aspirin and Plavix. Outpatient follow-up with cardiology PHYSICAL EXAMINATION: GENERAL: The patient is alert and oriented x3, not in any acute distress. Well developed, well nourished. HEENT: Pupils are round and equally reacting to light. EOMI. No scleral icterus. No conjunctival pallor. Normocephalic, atraumatic. No pharyngeal erythema. No thyromegaly. CARDIOVASCULAR: S1 and S2 present. No murmurs, rubs, or gallops. PULMONARY: Chest is clear to auscultation, no wheezing or crackles. ABDOMEN: Soft, nontender, nondistended, normoactive bowel sounds. No palpable organomegaly. MUSCULOSKELETAL: No joint swelling or deformity. EXTREMITIES: No cyanosis, clubbing, or pedal edema. NEUROLOGICAL: Gross neurological examination did not reveal any focal deficits. SKIN: No rashes. Patient Condition at Discharge: Serious Plan - Discharge Summary Discharge Rx Participant: No New Discharge Prescriptions: New Atorvastatin [Lipitor] 40 mg PO HS #90 tab Clopidogrel [Plavix] 75 mg PO DAILY #90 tab Continue Nitroglycerin Sl Tabs [Nitrostat] 0.4 mg SL Q5M PRN PRN Reason: Chest Pain Metoprolol Tartrate 25 mg PO BID Celecoxib [CeleBREX] 200 mg PO DAILY Calcium Carbonate [Calcium] 600 mg PO BID Ibandronate Sodium 150 mg PO Q30D amLODIPine [Norvasc] 2.5 mg PO DAILY Oxybutynin Xl [Ditropan XL] 5 mg PO DAILY Isosorbide Mononitrate ER [Imdur] 60 mg PO DAILY Aspirin EC [Ecotrin Low Dose] 81 mg PO DAILY lisinopriL [Zestril] 20 mg PO BID #60 tab Pantoprazole [Protonix] 40 mg PO DAILY Baclofen 5 mg PO DAILY traMADol HCL 25 mg PO Q6H PRN PRN Reason: Pain Discontinued Atorvastatin [Lipitor] 20 mg PO HS Discharge Medication List Nitroglycerin Sl Tabs [Nitrostat] 0.4 mg SL Q5M PRN 06/08/15 [History] Metoprolol Tartrate 25 mg PO BID 09/03/15 [History] Aspirin EC [Ecotrin Low Dose] 81 mg PO DAILY 09/22/21 [History] Calcium Carbonate [Calcium] 600 mg PO BID 09/22/21 [History] Celecoxib [CeleBREX] 200 mg PO DAILY 09/22/21 [History] Isosorbide Mononitrate ER [Imdur] 60 mg PO DAILY 09/22/21 [History] Oxybutynin Xl [Ditropan XL] 5 mg PO DAILY 09/22/21 [History] amLODIPine [Norvasc] 2.5 mg PO DAILY 09/22/21 [History] lisinopriL [Zestril] 20 mg PO BID #60 tab 09/23/21 [Rx] Baclofen 5 mg PO DAILY 05/04/23 [History] Ibandronate Sodium 150 mg PO Q30D 05/04/23 [History] Pantoprazole [Protonix] 40 mg PO DAILY 05/04/23 [History] traMADol HCL 25 mg PO Q6H PRN 05/04/23 [History] Atorvastatin [Lipitor] 40 mg PO HS #90 tab 05/06/23 [Rx] Clopidogrel [Plavix] 75 mg PO DAILY #90 tab 05/06/23 [Rx] Follow up Appointment(s)/Referral(s): Sharda Cueto MD [STAFF PHYSICIAN] - 1 Week Kev Waddell MD [Primary Care Provider] - 1-2 days Discharge Disposition: HOME WITH HOME HEALTH SERVICES
[2023-05-06] MEDS: SODIUM CHLORIDE 0.9% 1,000 ML IV SCH (13:46)
== END 2023-05-06 14:40 | disposition home health service (06) | DRG 247 ==
LOC: EC 11:15 → OBSVTOIN 13:57 → 3SCARD 13:57
PROVIDERS: ADMIT Internal Medicine; ATTEND Internal Medicine
PROC: B2111ZZ Fluoroscopy of Multiple Coronary Arteries using Low Osmolar Contrast (ICD-10-PCS; principal; 2023-05-05 12:40)
PROC: B241ZZ3 Ultrasonography of Multiple Coronary Arteries, Intravascular (ICD-10-PCS; principal; 2023-05-05 12:40)
PROC: 4A023N7 Measurement of Cardiac Sampling and Pressure, Left Heart, Percutaneous Approach (ICD-10-PCS; principal; 2023-05-05 12:40)
PROC: 027034Z Dilation of Coronary Artery, One Artery with Drug-eluting Intraluminal Device, Percutaneous Approach (ICD-10-PCS; principal; 2023-05-05 12:40)
DX: I21.4 Non-ST elevation (NSTEMI) myocardial infarction (principal); I25.10 Atherosclerotic heart disease of native coronary artery without angina pectoris; I10 Essential (primary) hypertension; Z87.891 Personal history of nicotine dependence; I45.10 Unspecified right bundle-branch block; H35.30 Unspecified macular degeneration; E78.5 Hyperlipidemia, unspecified; I08.1 Rheumatic disorders of both mitral and tricuspid valves; H40.9 Unspecified glaucoma; K21.9 Gastro-esophageal reflux disease without esophagitis; Z79.1 Long term (current) use of non-steroidal anti-inflammatories (NSAID); Z79.82 Long term (current) use of aspirin; Z79.899 Other long term (current) drug therapy; Z82.49 Family history of ischemic heart disease and other diseases of the circulatory system; Z86.73 Personal history of transient ischemic attack (TIA), and cerebral infarction without residual deficits; Z87.11 Personal history of peptic ulcer disease; Z95.1 Presence of aortocoronary bypass graft; Z88.6 Allergy status to analgesic agent; Z88.5 Allergy status to narcotic agent; Z71.3 Dietary counseling and surveillance
CPT/HCPCS: 36415; 71046; 80053; 80061; 82565; 83735; 84484; 85025; 85049; 85610; 85730; 92978; 93005; 93306; 93459; 94760; 96365; 96366; 99291